=== PATIENT | male | born 1975 | race Caucasian/White ===

== ENCOUNTER 2020-03-22 12:35 | Emergency (ER) | payer OTHER, SELFPAY ==
[2020-03-22 12:50] VITALS: BP 152/97; PULSE 79; RESP 18; TEMP 36.8; O2SAT 95; BMI 35.2
[2020-03-22 16:14] VITALS: BP 139/92; PULSE 74; RESP 16; O2SAT 97
--- NOTE | 2020-03-22 16:33 | DI.CT.S_ITS ---
PROCEDURE: CT ABDOMEN PELVIS W CON INDICATIONS: suprapubic/ LLQ tenderness and guarding r/o Diverticulitis, TECHNIQUE: After the administration of intravenous contrast, 5 mm thick sections acquired from the diaphragm to the symphysis. 5 mm coronal and sagittal reformats were acquired. For radiation dose reduction, the following was used: automated exposure control, adjustment of mA and/or kV according to patient size. COMPARISON: None. FINDINGS: Image quality: Excellent. ABDOMEN: Lung bases: Lung bases are clear. Heart size is normal. Solid organs: Liver is normal in size and mildly diffusely hypodense. There is focal fat deposition adjacent to the falciform ligament and relative fat sparing in the gallbladder fossa.. Gallbladder appears normal . Biliary system is non dilated. Pancreas enhances normally. Spleen is normal in size and enhancement. No adrenal nodules. Kidneys demonstrate normal size and enhancement, without hydronephrosis. Peritoneum and bowel: There is mild pericolonic inflammatory change around a segment of proximal sigmoid colon diverticulosis. Adjacent fascial thickening is present. No free fluid or focal fluid collections. No extraluminal gas is visible. The remainder of colon and small bowel is fairly decompressed. The stomach appears normal. Nodes and vessels: No retroperitoneal or mesenteric adenopathy by size criteria. Aorta and inferior vena cava are normal in size. Miscellaneous: No ventral hernias. PELVIS: Genitourinary: The urinary bladder is decompressed. The wall is also diffusely thickened given its close proximity to pericolonic inflammation. Prostate gland size is diminutive.. Miscellaneous: No inguinal hernias or adenopathy. Bones: No suspicious bony lesions. No vertebral body compression fractures. IMPRESSION: 1. Mild sigmoid diverticulitis. 2. Diffusely thickened urinary bladder wall may represent a reactive cystitis, or may be evidence of chronic overdistention. Correlate with UA to include infectious cystitis. 3. Mild hepatic steatosis. Dictated by: Susanne Chavez M.D. on 03/22/2020 at 16:05 Approved by: Susanne Chavez M.D. on 03/22/2020 at 16:10
[2020-03-22] MEDS: SODIUM CHLORIDE 0.9% 1,000 ML 1000 ML IV (16:50)
[2020-03-22 16:51] LABS: Add Manual Diff / Slide Review NO; Basophils Absolute Auto 100 /uL (0-100); Basophils Percent Auto 1.2 % (0-2); Eosinophils Absolute Auto 200 /uL (0-450); Eosinophils Percent Auto 3.5 % (2-4); Hematocrit 46.6 % (41-53); Hemoglobin 16.1 g/dL (13.5-17.5); Lymphocytes Absolute Auto 2100 /uL (1100-4500); Lymphocytes Percent Auto 31.5 % (25-40); Mean Corpuscular HGB Conc 34.5 % (30-36); Monocytes Absolute Auto 900 /uL (0-900); Monocytes Percent Auto 13.6 % (3-14); Neutrophils Absolute Auto 3400 /uL (1500-7000); Neutrophils Percent Auto 50.2 % (50-75); Platelet Count 203 X10^3/uL (150-400); Red Blood Cell Count 5.36 X10^6/uL (4.5-5.9); Red Cell Distribution Width 13.6 % (11.6-14.8); White Blood Cell Count 6.7 X10^3/uL (4.5-11.0)
[2020-03-22] MEDS: KETOROLAC 60 MG/2 ML VIAL 30 MG IV (16:51)
[2020-03-22 17:03] LABS: Alanine Aminotransferase 61 IU/L (<50); Albumin 4.6 g/dL (3.5-5.0); Albumin Globulin Ratio 1.4 (1.0-2.8); Alkaline Phosphatase 77 U/L (38-126); Aspartate Aminotransferase 38 IU/L (17-59); BUN Creatinine Ratio 16.5 (6-22); Bilirubin Total 0.8 mg/dL (0.2-1.3); Blood Urea Nitrogen 19 mg/dL (9-20); Calcium 9.6 mg/dL (8.4-10.2); Carbon Dioxide 24 mmol/L (22-32); Chloride 104 mmol/L (98-107); Estimated Glomerular Filt Rate > 60.0 mL/min (>60); Globulin 3.2 g/dL (1.7-4.1); Glucose 100 mg/dL (70-100); HEMOLYSIS < 15 (0-50); Potassium 3.8 mmol/L (3.4-5.1); Sodium 137 mmol/L (137-145); Total Protein 7.8 g/dL (6.3-8.2)
[2020-03-22 17:03] LABS: Bacteria Urine None Seen; RBC Urine None Seen (0-5/HPF)
[2020-03-22 17:04] LABS: Appearance Urine UA CLEAR; Bilirubin Urine UA NEGATIVE (NEGATIVE); Color Urine UA YELLOW; Glucose Urine UA NEGATIVE (Negative); Ketones Urine UA NEGATIVE (NEGATIVE); Leukocyte Esterase Urine UA NEGATIVE (NEGATIVE); Nitrite Urine UA NEGATIVE (Negative); Occult Blood Urine UA NEGATIVE (Negative); Protein Urine UA NEGATIVE (Negative); pH Urine UA 6.5 (4.5-8.0)
[2020-03-22 17:19] LABS: Culture Indicated Urine Cult Not Indicated; Squamous Epithelial Cell Urine 0-1 /HPF (0-5/HPF); WBC Urine 0-1/HPF (0-5/HPF)
--- NOTE | 2020-03-22 17:48 | ED.ABDPAIN ---
HPI - Abdominal Pain General Chief Complaint: Abdominal Pain Stated Complaint: hernia Time Seen by Provider: 03/22/20 16:18 Source: patient Mode of arrival: Ambulatory Limitations: no limitations History of Present Illness HPI narrative: CC: Lower abdominal pain HPI: The patient is a 44-year-old male who presents to the emergency department with lower abdominal pain. The patient thought that he may have a hernia. He states that the pain started on Sunday. The pain seems to be constant but has gotten progressively worse. It is a dull achy discomfort that is intermittently sharp. There is no significant pain in his groin or testicles. He states that the pain is 5 to 6/10 in intensity. He denies any fall or injury. He has never before had this type of pain and discomfort. He denies that he has ever had kidney iinfection or bladder infection. He has never been told that he had a hernia. States that he has had kidney stones years ago. He denies any back pain associated with this. He has had sweats without fever or chills. He has had no headache. He denies a history of Crohn's disease ulcerative colitis or irritable bowel syndrome. He has had no history of hypertension diabetes mellitus heart disease heart murmur or asthma. He denies any chest pain cough shortness of breath. He has had no nausea or vomiting he has had some rare intermittent diarrhea without blood in his stools. He denies any urinary symptoms. He does not smoke cigarettes use marijuana but does drink alcohol. Related Data Previous Rx's Medication Instructions Recorded ciprofloxacin HCl 500 mg PO BID #20 tab 03/22/20 hydrocodone-acetaminophen [[place]] 1 tab PO Q6H PRN #12 tab 03/22/20 metronidazole [Flagyl] 500 mg PO BID #20 tab 03/22/20 prochlorperazine maleate 10 mg PO Q6H PRN #15 tab 03/22/20 [Compazine] Allergies Allergy/AdvReac Type Severity Reaction Status Date / Time No Known Drug Allergies Allergy Verified 03/22/20 12:52 Review of Systems Review of Systems Narrative: His review of systems were all negative except for those mentioned in the history of present illness. Patient History Social History Smoking Status: Never smoker Smoking Status: Never smoker alcohol intake frequency: holidays/special occasions only Exam Narrative Exam Narrative: PHYSICAL EXAM: CONSTITUTIONAL: Awake, Alert, Oriented, Coherent, Cooperative in NAD. Does not appear toxic or ill. HEAD: AT/NC EENT: PERRL, FROM of eyes, no discharge, NOSE:No epistaxis or nasal drainage MOUTH:Oral mucosa is moist and pink, posterior pharynx is without erythema or exudate. NECK: Supple, no obvious JVD, Trachea is midline without stridor, no palpable LN. SPINE: Palpation of the cervical, Thoracic, Lumbar or Sacral spine reveals no gross deformity or tenderness. No CVA tenderness. THORAX: No deformity, retractions, chest wall tenderness. LUNGS: Clear, symmetrical breath sounds without respiratory distress. HEART: Normal heart tones, regular rhythm and rate without murmur. ABDOMEN: The patient is noticeably very tender to palpation suprapubically and in the left lower quadrant with mild guarding no rebound no rigidity no palpable mass. EXTREMITIES: No edema, deformity, tenderness or cyanosis. SKIN: No rash, bruising, petechiae or purpura. NEURO: Awake, alert, oriented, conversive, cranial nerves II-XII are symmetrical , moves all 4 extremities and is ambulatory. MENTAL HEALTH: Does not appear anxious or depressed. Initial Vital Signs Initial Vital Signs: Vital Signs Temperature 98.2 F 03/22/20 12:50 Pulse Rate 79 03/22/20 12:50 Respiratory Rate 18 03/22/20 12:50 Blood Pressure 152/97 H 03/22/20 12:50 Pulse Oximetry 95 03/22/20 12:50 Course Course Course Narrative: 1749: CT of the patient's abdomen has been completed however the results remain pending at this time. 1754: Per the radiologist the patient has mild sigmoid diverticulitis. He has thickening of the bladder wall with an indeterminate cystitis. The patient will be treated with Cipro 500 mg b.i.d. and Flagyl 500 mg b.i.d. and advised to follow-up with his primary care physician and be re-evaluated. He will need to drink 2-4 L of fluid per day. 1803: CT of the patient's abdomen revealed: IMPRESSION: 1. Mild sigmoid diverticulitis. 2. Diffusely thickened urinary bladder wall may represent a reactive cystitis, or may be evidence of chronic overdistention. Correlate with UA to include infectious cystitis. 3. Mild hepatic steatosis. Dictated by: Susanne Chavez M.D. on 03/22/2020 at 16:05 Approved by: Susanne Chavez M.D. on 03/22/2020 at 16:10 IMPRESSION: 1. Mild sigmoid diverticulitis. 2. Diffusely thickened urinary bladder wall may represent a reactive cystitis, or may be evidence of chronic overdistention. Correlate with UA to include infectious cystitis. 3. Mild hepatic steatosis. Dictated by: Susanne Chavez M.D. on 03/22/2020 at 16:05 Approved by: Susanne Chavez M.D. on 03/22/2020 at 16:10 Orders Ordered: Discontinued Medications Hydrocodone Bitart/Acetaminophen ([place] 5/325) 1 tab PO NOW ONE Stop: 03/22/20 18:06 Last Admin: 03/22/20 18:27 Dose: 1 tab Documented by: FRANK Ciprofloxacin (Cipro) 500 mg PO NOW ONE Stop: 03/22/20 18:06 Last Admin: 03/22/20 18:27 Dose: 500 mg Documented by: FRANK Sodium Chloride (Normal Saline 0.9%) 1,000 mls @ 1,000 mls/hr IV BOLUS ONE Stop: 03/22/20 17:32 Last Infusion: 03/22/20 18:30 Dose: 0 mls/hr Documented by: Admin: 03/22/20 16:50 Dose: 1,000 mls/hr Documented by: JEANNE Ketorolac Tromethamine (Toradol) 30 mg IV NOW ONE Stop: 03/22/20 16:34 Last Admin: 03/22/20 16:51 Dose: 30 mg Documented by: JEANNE Metronidazole (Metronidazole) 500 mg PO NOW ONE Stop: 03/22/20 18:06 Last Admin: 03/22/20 18:26 Dose: 500 mg Documented by: FRANK Ondansetron HCl (Zofran) 4 mg IV NOW ONE Stop: 03/22/20 16:34 Last Admin: 03/22/20 18:30 Dose: Not Given Documented by: JEANNE Vital Signs Vital signs: Vital Signs - 8 hr 03/22/20 12:50 03/22/20 16:14 03/22/20 18:29 Temperature 98.2 F Pulse Rate 79 74 64 Respiratory Rate 18 16 16 Blood Pressure 152/97 H 139/92 H 149/98 H Pulse Oximetry 95 97 96 MDM - Abdominal Pain Medical Records Attestation: I reviewed the patient's medical records. Lab Data Attestation: I reviewed the patient's lab results. Result diagrams: 03/22/20 16:40 03/22/20 16:40 Labs: Lab Results 03/22/20 03/22/20 03/22/20 Range/Units 16:40 16:40 16:45 WBC 6.7 (4.5-11.0) X10^3/uL RBC 5.36 (4.5-5.9) X10^6/uL Hgb 16.1 (13.5-17.5) g/dL Hct 46.6 (41-53) % MCV 87.0 (80-100) fL MCH 30.0 (26-34) PG MCHC 34.5 (30-36) % RDW 13.6 (11.6-14.8) % Plt Count 203 (150-400) X10^3/uL Neut % (Auto) 50.2 (50-75) % Lymph % (Auto) 31.5 (25-40) % [place] % (Auto) 13.6 (3-14) % Eos % (Auto) 3.5 (2-4) % Baso % (Auto) 1.2 (0-2) % Neut # (Auto) 3400 (2325-4679) /uL Lymph # (Auto) 2100 (4432-2960) /uL [place] # (Auto) 900 (0-900) /uL Eos # (Auto) 200 (0-450) /uL Baso # (Auto) 100 (0-100) /uL Sodium 137 (137-145) mmol/L Potassium 3.8 (3.4-5.1) mmol/L Chloride 104 (98-107) mmol/L Carbon Dioxide 24 (22-32) mmol/L BUN 19 (9-20) mg/dL Creatinine 1.15 (0.66-1.25) mg/dL Estimated GFR > 60.0 (>60) mL/min BUN/Creatinine Ratio 16.5 (6-22) Glucose 100 (70-100) mg/dL Calcium 9.6 (8.4-10.2) mg/dL Total Bilirubin 0.8 (0.2-1.3) mg/dL AST 38 (17-59) IU/L ALT 61 H (<50) IU/L Alkaline Phosphatase 77 (38-126) U/L Total Protein 7.8 (6.3-8.2) g/dL Albumin 4.6 (3.5-5.0) g/dL Globulin 3.2 (1.7-4.1) g/dL Albumin/Globulin Ratio 1.4 (1.0-2.8) Urine Color Yellow Urine Appearance Clear Urine pH 6.5 (4.5-8.0) Ur Specific [place] 1.010 (1.000-1.035) Urine Protein Negative (Negative) Urine Glucose (UA) Negative (Negative) g/dL Urine Ketones Negative (NEGATIVE) Urine Occult Blood Negative (Negative) Urine Nitrate Negative (Negative) Urine Bilirubin Negative (NEGATIVE) Urine Urobilinogen 1.0 (0.2) E.U./dL Ur Leukocyte Esterase Negative (NEGATIVE) Urine RBC None seen (0-5/HPF) Urine WBC 0-1/hpf (0-5/HPF) Ur Squamous Epith Cells 0-1 /hpf (0-5/HPF) Urine Bacteria None seen (None) Ur Culture Indicated? Cult not indicated Discharge Plan Departure Patient Disposition: Home Clinical Impression: Diverticulitis, Cystitis Discharge Date/Time: 03/22/20 18:53 Instructions: DI for Diverticulitis Activity Restrictions/Additional Instructions: 1. Follow-up with your primary care physician and be re-evaluated in 48-72 hours. 2. Drink 2-4 L of fluid per day to keep yourself well hydrated. 3. Her CT scan reveals that you have an inflamed bladder with thickening of the wall consistent with arm I cystitis age indeterminate however your urine analysis was negative for any acute infection. You need to follow-up with your primary care physician because you may need to be referred to a urologist for further evaluation. The CT scan revealed that you have sigmoid diverticulitis which is causing your pain and discomfort. For the diverticulitis you will be placed on Cipro and Flagyl. Take these medications as prescribed. 4. For pain and discomfort take [place] 12/3250 tablet every 6 hours as needed for severe pain. 5. If you develop severe intolerable pain uncontrolled by the medications, persistent fever, chest pain, racing of your heart palpitations, uncontrolled nausea and vomiting, feelings of being faint or passing-out you need to return to the emergency department. 6. Take Compazine 10 mg 4 times a day as needed for nausea and vomiting. Prescriptions: New prochlorperazine maleate [Compazine] 10 mg tablet 10 mg PO Q6H PRN (Reason: nausea and vomiting) Qty: 15 RF: 0 ciprofloxacin HCl 500 mg tablet 500 mg PO BID Qty: 20 RF: 0 metronidazole [Flagyl] 500 mg tablet 500 mg PO BID Qty: 20 RF: 0 hydrocodone-acetaminophen [[place]] 5-325 mg tablet 1 tab PO Q6H PRN (Reason: pain) Qty: 12 RF: 0
[2020-03-22] MEDS: metroNIDAZOLE 250 MG TABLET 500 MG PO (18:26)
[2020-03-22] MEDS: CIPROFLOXACIN 500 MG TABLET PO (18:27)
[2020-03-22] MEDS: HYDROCODONE/ACET 5/325 TABLET 1 TAB PO (18:27)
[2020-03-22 18:29] VITALS: BP 149/98; PULSE 64; RESP 16; O2SAT 96
== END 2020-03-22 18:53 | disposition home or self-care (01) ==
PROVIDERS: Emergency Provider Emergency Medicine
DX: K57.92 Diverticulitis of intestine, part unspecified, without perforation or abscess without bleeding (principal); N30.90 Cystitis, unspecified without hematuria
CPT/HCPCS: 36415; 74177; 80053; 81001; 85025; 96361; 96374; 99284; J1885; Q9967

== ENCOUNTER 2020-05-23 12:17 | Emergency (ER) | payer OTHER, SELFPAY ==
[2020-05-23 12:28] VITALS: BP 171/118; PULSE 77; RESP 19; TEMP 37.1; O2SAT 97; BMI 33.9
[2020-05-23 12:59] LABS: Add Manual Diff / Slide Review NO; Basophils Absolute Auto 0 /uL (0-100); Basophils Percent Auto 0.4 % (0-2); Eosinophils Absolute Auto 100 /uL (0-450); Eosinophils Percent Auto 1.6 % (2-4); Hematocrit 47.5 % (41-53); Hemoglobin 16.4 g/dL (13.5-17.5); Lymphocytes Absolute Auto 1300 /uL (1100-4500); Mean Corpuscular HGB Conc 34.6 % (30-36); Mean Corpuscular Hemoglobin 30.2 PG (26-34); Mean Corpuscular Volume 87.3 fL (80-100); Monocytes Absolute Auto 900 /uL (0-900); Monocytes Percent Auto 12.8 % (3-14); Neutrophils Absolute Auto 4800 /uL (1500-7000); Neutrophils Percent Auto 67.2 % (50-75); Platelet Count 174 X10^3/uL (150-400); Red Blood Cell Count 5.44 X10^6/uL (4.5-5.9); Red Cell Distribution Width 13.2 % (11.6-14.8); White Blood Cell Count 7.2 X10^3/uL (4.5-11.0)
[2020-05-23 13:00] LABS: Alanine Aminotransferase 49 IU/L (<50); Albumin 4.5 g/dL (3.5-5.0); Albumin Globulin Ratio 1.3 (1.0-2.8); Alkaline Phosphatase 81 U/L (38-126); Aspartate Aminotransferase 27 IU/L (17-59); Bilirubin Total 0.8 mg/dL (0.2-1.3); Blood Urea Nitrogen 26 mg/dL (9-20); Calcium 9.8 mg/dL (8.4-10.2); Carbon Dioxide 28 mmol/L (22-32); Chloride 107 mmol/L (98-107); Estimated Glomerular Filt Rate 33.7 mL/min (>60); Globulin 3.6 g/dL (1.7-4.1); Glucose 98 mg/dL (70-100); HEMOLYSIS < 15 (0-50); Lipase 71 U/L (23-300); Potassium 4.6 mmol/L (3.4-5.1); Sodium 142 mmol/L (137-145); Total Protein 8.1 g/dL (6.3-8.2)
--- NOTE | 2020-05-23 13:16 | ED.ABDPAIN ---
HPI - Abdominal Pain General Chief Complaint: Abdominal Pain Stated Complaint: Pain In Lower Abd Time Seen by Provider: 05/23/20 12:45 Source: patient Mode of arrival: Ambulatory Limitations: no limitations History of Present Illness HPI narrative: Patient is a 44-year-old male who presents with right sided and right flank abdominal pain ongoing for the last 2 days. He says it has been relatively constant it sometimes radiates to his abdomen and sometimes not. He has no right upper quadrant pain he feels nauseated he has had decrease in appetite. Been drinking fluids though. Not had fever or chills. Related Data Previous Rx's Medication Instructions Recorded ciprofloxacin HCl 500 mg PO BID #20 tab 03/22/20 hydrocodone-acetaminophen [[place]] 1 tab PO Q6H PRN #12 tab 03/22/20 metronidazole [Flagyl] 500 mg PO BID #20 tab 03/22/20 prochlorperazine maleate 10 mg PO Q6H PRN #15 tab 03/22/20 [Compazine] Allergies Allergy/AdvReac Type Severity Reaction Status Date / Time No Known Drug Allergies Allergy Verified 03/22/20 12:52 Review of Systems Review of Systems Narrative: GENERAL: Denies chills, fatigue, malaise, fever, sweats, travel HEENT: Denies sinus pain, ear pain, sore throat, difficulty swallowing, neck pain RESPIRATORY: Denies dyspnea, cough, wheezing, hemoptysis, sputum. CARDIOVASCULAR: Denies chest pain, palpitations, orthopnea, edema GASTROINTESTINAL: See HPI : + flank pain Denies dysuria, frequency, incontinence, hematuria, urinary retention MUSCULOSKELETAL: Denies weakness, joint pain, or bony pain SKIN: No rash, no erythema, no pruritus NEUROLOGIC: Denies weakness, dizziness, headache, numbness, change in speech, confusion PSYCHIATRIC: No concerning psychosocial issues. 12 point review of systems is negative except for those stated above and HPI Patient History Medical History Hypertension (Acute) Social History Smoking Status: Never smoker Smoking Status: Never smoker alcohol intake frequency: a few times a month Substance Use Type: does not use Exam Initial Vital Signs Initial Vital Signs: Vital Signs Temperature 98.7 F 05/23/20 12:28 Pulse Rate 77 05/23/20 12:28 Respiratory Rate 19 05/23/20 12:28 Blood Pressure 171/118 H 05/23/20 12:28 Pulse Oximetry 97 05/23/20 12:28 GENERAL: Well-appearing, well-nourished and in no acute distress. HEENT: Head atraumatic,EOMI, pupils reactive, face symmetric, moist mucous membranes CARDIOVASCULAR: Regular rate and rhythm without murmurs, rubs or gallops. RESPIRATORY: Breath sounds equal bilaterally, no wheezes rales or rhonchi. ABDOMEN: Soft, mild right lower quadrant pain : Right CVA tenderness EXTREMITIES: Normal range of motion, no clubbing or edema. Neurovascularly intact NEUROLOGICAL: Alert and oriented x4.Normal gait and speech. SKIN: Warm, dry, no laceration, no petechiae, no rashes or lesions. Course Orders Ordered: ED Orders 05/23/20 12:32 Complete Blood Count AUTO DIFF Stat Comprehensive Metabolic Panel Stat Lipase Stat 05/23/20 13:40 CT kidney ureter bladder (KUB) Stat 05/23/20 15:00 US abdomen limited Stat Discontinued Medications Sodium Chloride (Normal Saline 0.9%) 1,000 mls @ 1,000 mls/hr IV BOLUS ONE Stop: 05/23/20 14:15 Last Infusion: 05/23/20 16:15 Dose: 1,000 mls/hr Documented by: Admin: 05/23/20 13:30 Dose: 1,000 mls/hr Documented by: KHARI Morphine Sulfate (Morphine) 2 mg IV NOW ONE Stop: 05/23/20 15:12 Last Admin: 05/23/20 15:22 Dose: 2 mg Documented by: KHARI Vital Signs Vital signs: Vital Signs - 8 hr 05/23/20 12:28 05/23/20 16:15 Temperature 98.7 F Pulse Rate 77 73 Respiratory Rate 19 18 Blood Pressure 171/118 H 160/87 H Pulse Oximetry 97 99 MDM - Abdominal Pain Lab Data Attestation: I reviewed the patient's lab results. Result diagrams: 05/23/20 12:32 05/23/20 12:32 Labs: Lab Results 05/23/20 05/23/20 Range/Units 12:32 12:32 WBC 7.2 (4.5-11.0) X10^3/uL RBC 5.44 (4.5-5.9) X10^6/uL Hgb 16.4 (13.5-17.5) g/dL Hct 47.5 (41-53) % MCV 87.3 (80-100) fL MCH 30.2 (26-34) PG MCHC 34.6 (30-36) % RDW 13.2 (11.6-14.8) % Plt Count 174 (150-400) X10^3/uL Neut % (Auto) 67.2 (50-75) % Lymph % (Auto) 18.0 L (25-40) % [place] % (Auto) 12.8 (3-14) % Eos % (Auto) 1.6 L (2-4) % Baso % (Auto) 0.4 (0-2) % Neut # (Auto) 4800 (3080-3573) /uL Lymph # (Auto) 1300 (9579-4516) /uL [place] # (Auto) 900 (0-900) /uL Eos # (Auto) 100 (0-450) /uL Baso # (Auto) 0 (0-100) /uL Sodium 142 (137-145) mmol/L Potassium 4.6 (3.4-5.1) mmol/L Chloride 107 (98-107) mmol/L Carbon Dioxide 28 (22-32) mmol/L BUN 26 H (9-20) mg/dL Creatinine 2.16 H (0.66-1.25) mg/dL Estimated GFR 33.7 L (>60) mL/min BUN/Creatinine Ratio 12.0 (6-22) Glucose 98 (70-100) mg/dL Calcium 9.8 (8.4-10.2) mg/dL Total Bilirubin 0.8 (0.2-1.3) mg/dL AST 27 (17-59) IU/L ALT 49 (<50) IU/L Alkaline Phosphatase 81 (38-126) U/L Total Protein 8.1 (6.3-8.2) g/dL Albumin 4.5 (3.5-5.0) g/dL Globulin 3.6 (1.7-4.1) g/dL Albumin/Globulin Ratio 1.3 (1.0-2.8) Lipase 71 (23-300) U/L Point of care testing: Urine Dip Bedside Urine Glucose Negative Bedside Urine Bilirubin - Negative Bedside Urine Ketone - Negative Urine Specific [place] 1.010 Bedside Urine Occult Blood - Negative Bedside Urine pH 6.0 Bedside Urine Protein - Negative Bedside Urine Urobilinogen - Negative Bedside Urine Nitrite - Negative Bedside Urine Leukocytes - Negative Esterase Imaging Data CT scan - abdomen/pelvis: Radiologist's Impression: PROCEDURE: CT KIDNEY URETER BLADDER (KUB) INDICATIONS: right flank TECHNIQUE: Noncontrast 5 mm thick sections acquired from the diaphragms to the symphysis. 5 mm thick coronal and sagittal reformats were then performed. For radiation dose reduction, the following was used: automated exposure control, adjustment of mA and/or kV according to patient size. COMPARISON: None. FINDINGS: Image quality: Excellent. Lung bases: Lung bases are clear. Heart size is normal. Urinary system: Both kidneys are normal in size. No radiopaque kidney stones. No hydronephrosis or perinephric fat stranding. Both ureters appear non-dilated throughout their expected courses. Bladder wall thickness is normal; no calcified bladder stones. Other solid organs: Liver is normal in size. Gallbladder is unremarkable. Pancreas is normal in contours. Spleen is normal in size. No adrenal nodules. Peritoneum and bowel: Unenhanced bowel loops demonstrate normal wall thickness and caliber. Appendix not visualized. Diverticulosis of the sigmoid colon. No free fluid or air. Nodes and vessels: No retroperitoneal or mesenteric adenopathy by size criteria. Aorta and inferior vena cava are normal in caliber. Vascular calcification scattered in the abdominal aorta. Abdominal wall: No ventral hernias. Pelvis: No free pelvic fluid. No inguinal hernias or adenopathy. Bones: No suspicious bony lesions. No vertebral body compression fractures. IMPRESSION: No radiopaque kidney stone or hydronephrosis. Sigmoid colon diverticulosis. Dictated by: Rafael Diaz M.D. on 05/23/2020 at 12:59 US - abdomen: Radiologist's Impression: PROCEDURE: US ABDOMEN LIMITED INDICATIONS: ruq TECHNIQUE: Real-time focused scanning was performed of the abdomen, with image documentation. COMPARISON: [facility], CT, CT KIDNEY URETER BLADDER (KUB), 05/23/2020, 13:42. FINDINGS: Liver length is 17.3 cm. Diffuse increased echogenicity and coarsened echotexture throughout the liver. The gallbladder is distended. No gallstones demonstrated. Gallbladder wall thickness of 2 mm, within normal limits. Sonographic Olea sign is negative. No demonstrated pericholecystic fluid. Common bile duct measures 0.4 cm, within normal limits. Limited visualization of the right kidney is unremarkable. Visualized portions of the pancreas are unremarkable. IMPRESSION: No evidence of cholelithiasis or acute cholecystitis. Hepatic steatosis. Dictated by: Rafael Diaz M.D. on 05/23/2020 at 15:20 MDM Narrative Medical decision making narrative: Patient is found to have increased creatinine. He started taking etodolac, last week for his back this may be contributing to his renal function. He certainly has no loss of fluid or to be dehydrated but none left he is given 1 L of IV fluid in the ED. ultrasound and CT are negative blood work otherwise is reassuring he still is having some right-sided pain without a cause identified. Discharge Plan Departure Patient Disposition: Home Clinical Impression: Acute kidney injury Abdominal pain Qualifiers: Abdominal location: generalized Qualified Code(s): R10.84 - Generalized abdominal pain Discharge Date/Time: 05/23/20 16:33 Instructions: DI for Abdominal Pain-Adult Activity Restrictions/Additional Instructions: *You have been diagnosed with abdominal pain and acute kidney injury *What to do: Your kidney function is slightly worse I recommend this be rechecked with her primary care provider. Recommend avoiding all NSAIDs because of kidney function. At this time there is no sign of diabetes. *Continue to take medications as directed Tylenol 1000 mg every 6 hours if needed for pain do not exceed more than 4000 mg in 24 hours *Follow up with your primary care provider in 2-3 days *Return to ER if you should have increasing pain inability to tolerate fluids, fever or any new, worsening or concerning symptoms Prescriptions: No Action prochlorperazine maleate [Compazine] 10 mg tablet 10 mg PO Q6H PRN (Reason: nausea and vomiting) Qty: 15 RF: 0 ciprofloxacin HCl 500 mg tablet 500 mg PO BID Qty: 20 RF: 0 metronidazole [Flagyl] 500 mg tablet 500 mg PO BID Qty: 20 RF: 0 hydrocodone-acetaminophen [[place]] 5-325 mg tablet 1 tab PO Q6H PRN (Reason: pain) Qty: 12 RF: 0 Referrals: Prem Brody MD [Primary Care Provider] -
[2020-05-23] MEDS: SODIUM CHLORIDE 0.9% 1,000 ML 1000 ML IV (13:30)
--- NOTE | 2020-05-23 13:40 | DI.CT.S_ITS ---
PROCEDURE: CT KIDNEY URETER BLADDER (KUB) INDICATIONS: right flank TECHNIQUE: Noncontrast 5 mm thick sections acquired from the diaphragms to the symphysis. 5 mm thick coronal and sagittal reformats were then performed. For radiation dose reduction, the following was used: automated exposure control, adjustment of mA and/or kV according to patient size. COMPARISON: None. FINDINGS: Image quality: Excellent. Lung bases: Lung bases are clear. Heart size is normal. Urinary system: Both kidneys are normal in size. No radiopaque kidney stones. No hydronephrosis or perinephric fat stranding. Both ureters appear non-dilated throughout their expected courses. Bladder wall thickness is normal; no calcified bladder stones. Other solid organs: Liver is normal in size. Gallbladder is unremarkable. Pancreas is normal in contours. Spleen is normal in size. No adrenal nodules. Peritoneum and bowel: Unenhanced bowel loops demonstrate normal wall thickness and caliber. Appendix not visualized. Diverticulosis of the sigmoid colon. No free fluid or air. Nodes and vessels: No retroperitoneal or mesenteric adenopathy by size criteria. Aorta and inferior vena cava are normal in caliber. Vascular calcification scattered in the abdominal aorta. Abdominal wall: No ventral hernias. Pelvis: No free pelvic fluid. No inguinal hernias or adenopathy. Bones: No suspicious bony lesions. No vertebral body compression fractures. IMPRESSION: No radiopaque kidney stone or hydronephrosis. Sigmoid colon diverticulosis. Dictated by: Rafael Diaz M.D. on 05/23/2020 at 12:59 Approved by: Rafael Diaz M.D. on 05/23/2020 at 13:17
--- NOTE | 2020-05-23 15:00 | DI.US.S_ITS ---
PROCEDURE: US ABDOMEN LIMITED INDICATIONS: ruq TECHNIQUE: Real-time focused scanning was performed of the abdomen, with image documentation. COMPARISON: [facility], CT, CT KID[facility] ([facility]), 05/23/2020, 13:42. FINDINGS: Liver length is 17.3 cm. Diffuse increased echogenicity and coarsened echotexture throughout the liver. The gallbladder is distended. No gallstones demonstrated. Gallbladder wall thickness of 2 mm, within normal limits. Sonographic Olea sign is negative. No demonstrated pericholecystic fluid. Common bile duct measures 0.4 cm, within normal limits. Limited visualization of the right kidney is unremarkable. Visualized portions of the pancreas are unremarkable. IMPRESSION: No evidence of cholelithiasis or acute cholecystitis. Hepatic steatosis. Dictated by: Rafael Diaz M.D. on 05/23/2020 at 15:20 Approved by: Rafael Diaz M.D. on 05/23/2020 at 15:22
[2020-05-23] MEDS: MORPHINE 2 MG/ML INJ IV (15:22)
[2020-05-23 16:15] VITALS: BP 160/87; PULSE 73; RESP 18; O2SAT 99
== END 2020-05-23 16:33 | disposition home or self-care (01) ==
PROVIDERS: Emergency Provider Emergency Medicine; PCP Family Medicine
DX: N17.9 Acute kidney failure, unspecified (principal); R10.84 Generalized abdominal pain; R11.0 Nausea
CPT/HCPCS: 36415; 74176; 76705; 80053; 81003; 83690; 85025; 96361; 96374; 99284; J2270

== ENCOUNTER 2020-05-25 05:16 | Emergency (ER) | payer OTHER, SELFPAY ==
[2020-05-25] VITALS (18 sets, daily range): BP systolic 134–191; BP diastolic 87–112; PULSE 55–70; RESP 11–23; TEMP 36.4; O2SAT 93–99; BMI 29.8
--- NOTE | 2020-05-25 05:37 | ED_ITS ---
HPI - Abdominal Pain <Dennis Casillas DO - Last Filed: 05/29/20 07:23> General Chief Complaint: Abdominal Pain Stated Complaint: lower abdominal pain Time Seen by Provider: 05/25/20 05:18 Source: patient and family Mode of arrival: Ambulatory Limitations: no limitations History of Present Illness HPI narrative: 44-year-old male nonsmoker with history of hypertension presents for re-evaluation of worsening lower abdominal pain since Sunday evening. He was seen and evaluated over the weekend and was found to have significant lower abdominal pain, decreased appetite, change in baseline kidney function but noncontrast CT showed nothing abnormal. He was referred to his primary care provider in the office and there was some discussion about how to proceed and follow-up was organized, however his symptoms are worsening and he was referred to us. He denies any fever chills. He denies any nausea or vomiting. He denies any worsening symptoms when eating but has no appetite so has not had much. He was seen and evaluated under similar circumstances in March and had a CT scan with IV contrast which noted diverticulitis MD complaint: abdominal pain Onset (ago): day(s) Pain Consistency: constant Severity: moderate Quality: cramping and aching Relieving factors: nothing Exacerbating factors: nothing Associated symptoms: anorexia Related Data Previous Rx's Medication Instructions Recorded ciprofloxacin HCl 500 mg PO BID #20 tab 03/22/20 hydrocodone-acetaminophen [[place]] 1 tab PO Q6H PRN #12 tab 03/22/20 metronidazole [Flagyl] 500 mg PO BID #20 tab 03/22/20 prochlorperazine maleate 10 mg PO Q6H PRN #15 tab 03/22/20 [Compazine] Allergies Allergy/AdvReac Type Severity Reaction Status Date / Time No Known Drug Allergies Allergy Verified 05/25/20 05:27 Review of Systems <Dennis Casillas DO - Last Filed: 05/29/20 07:23> Constitutional Constitutional: Denies chills, Denies fatigue, Denies fever(s), Denies frequent falls, Denies lethargy and Denies weakness Eyes Eyes: Denies change in vision, Denies eye discharge, Denies irritation and Denies loss of vision ENT Ears, Nose, Mouth, and Throat: Denies change in voice, Denies dizziness, Denies neck pain, Denies sore throat and Denies throat swelling Cardiovascular Cardiovascular: Denies chest pain, Denies irregular heart rhythm, Denies lightheadedness, Denies palpitations, Denies dyspnea, Denies dyspnea on exertion and Denies orthopnea Respiratory Respiratory: Denies cough, Denies dyspnea, Denies dyspnea on exertion and Denies wheezing Gastrointestinal Gastrointestinal: Reports abdominal pain, Denies change in bowel habits, Denies diarrhea, Denies nausea and Denies vomiting Musculoskeletal Musculoskeletal: Denies neck pain and Denies numbness Integumentary/Breasts Skin/Breast: Denies pruritus, Denies erythema, Denies rash and Denies wounds Neurologic Neurologic: Denies behavioral changes, Denies confusion, Denies dizziness, Denies frequent falls, Denies loss of vision, Denies numbness and Denies weakness Psychiatric Psychiatric: Denies anxiety, Denies behavioral changes, Denies confusion, Denies depression, Denies homicidal ideation and Denies suicidal ideation Endocrine Endocrine: Denies fatigue, Denies flushing and Denies palpitations Hematologic/Lymphatic Hematologic/Lymphatic: Denies easy bruising Allergic/Immunologic Allergic/Immunologic: Denies urticaria, Denies throat swelling and Denies wheezing Patient History <Dennis Casillas DO - Last Filed: 05/29/20 07:23> Medical History Hypertension (Acute) Social History Smoking Status: Never smoker Smoking Status: Never smoker alcohol intake frequency: a few times a month Substance Use Type: does not use Exam <Dennis Casillas DO - Last Filed: 05/29/20 07:23> Narrative Exam Narrative: GENERAL: [44] year old patient appears stated age. Well- nourished, well-developed patient, in moderate distress, obviously uncomfortable. HEAD: Atraumatic. Normocephalic. EYES: Pupils equal round and reactive. Extraocular motions intact. No scleral icterus. No injection or drainage. ENT: Nose without bleeding, purulent drainage. Throat without erythema, tonsillar hypertrophy or exudate. Airway patent. NECK: Trachea midline. Non tender CARDIOVASCULAR: Regular rate and rhythm without murmurs, gallops, or rubs. RESPIRATORY: Clear to auscultation. Breath sounds equal bilaterally. No wheezes, rales, or rhonchi. GASTROINTESTINAL: Abdomen soft, tender to palpate the left upper quadrant, minimal provocation with palpation of the lower EXTREMITIES: No edema or joint tenderness. BACK: Nontender without deformity or crepitance. No flank tenderness. NEURO: AOx3. SKIN: No rash or erythema of visible areas Initial Vital Signs Initial Vital Signs: Vital Signs Temperature 97.6 F 05/25/20 05:23 Pulse Rate 66 05/25/20 05:23 Respiratory Rate 20 05/25/20 05:23 Blood Pressure 172/98 H 05/25/20 05:23 Pulse Oximetry 97 05/25/20 05:23 <Idris Garrett DO - Last Filed: 05/25/20 12:13> Initial Vital Signs Initial Vital Signs: Vital Signs Temperature 97.6 F 05/25/20 05:23 Pulse Rate 66 05/25/20 05:23 Respiratory Rate 20 05/25/20 05:23 Blood Pressure 172/98 H 05/25/20 05:23 Pulse Oximetry 97 05/25/20 05:23 Course <Dennis Casillas DO - Last Filed: 05/29/20 07:23> Course Course Narrative: patient and informed of plan and they are in agreement. Patient signed out to Dr. Garrett for final disposition Fractional Excretion of Sodium (FENa) from [facility] on 05/25/2020 All calculations should be rechecked by clinician prior to use RESULT SUMMARY: 2.0 % FENa Intrinsic e.g. ATN, AIN, glomerulonephritides INPUTS: Serum sodium ?> 142 mEq/L Serum creatinine ?> 2.53 mg/dL Urine sodium ?> 43 mEq/L Urine creatinine ?> 37.6 mg/dL Orders Ordered: Discontinued Medications Hydromorphone HCl (Dilaudid) 0.5 mg IV NOW ONE Stop: 05/25/20 05:32 Last Admin: 05/25/20 05:38 Dose: 0.5 mg Documented by: VIVIAN Hydromorphone HCl (Dilaudid) 0.5 mg IV NOW ONE Stop: 05/25/20 07:24 Last Admin: 05/25/20 07:51 Dose: 0.5 mg Documented by: AUGUST Sodium Chloride (Normal Saline 0.9%) 1,000 mls @ 1,000 mls/hr IV BOLUS ONE Stop: 05/25/20 06:30 Last Infusion: 05/25/20 06:33 Dose: 0 mls/hr Documented by: Admin: 05/25/20 05:38 Dose: 1,000 mls/hr Documented by: VIVIAN Lisinopril (Zestril) 10 mg PO NOW ONE Stop: 05/25/20 07:30 Last Admin: 05/25/20 07:51 Dose: 10 mg Documented by: AUGUST Ondansetron HCl (Zofran) 4 mg IV NOW ONE Stop: 05/25/20 07:55 Last Admin: 05/25/20 08:00 Dose: 4 mg Documented by: AUGUST Reevaluation(s) Reevaluation #1: Patient feeling better after pain meds Consultations Consultation #1: Discussed with patient's PCP, we agree on the initial plan and he will confer with us upon completion of labs/imaging Vital Signs Vital signs: Vital Signs - 8 hr 05/25/20 05:23 05/25/20 05:43 05/25/20 06:00 Temperature 97.6 F Pulse Rate 66 70 64 Respiratory Rate 20 14 Blood Pressure 172/98 H 169/100 H Pulse Oximetry 97 95 97 05/25/20 06:30 05/25/20 07:00 05/25/20 07:30 Temperature Pulse Rate 60 62 68 Respiratory Rate 14 16 19 Blood Pressure 176/104 H 185/112 H Pulse Oximetry 99 97 98 05/25/20 07:31 05/25/20 07:51 05/25/20 08:00 Temperature Pulse Rate 67 64 Respiratory Rate 23 11 L Blood Pressure 191/112 H 161/105 H Pulse Oximetry 96 93 05/25/20 08:30 05/25/20 09:00 05/25/20 09:30 Temperature Pulse Rate 56 L 64 58 L Respiratory Rate 14 15 16 Blood Pressure 140/91 H 157/106 H 155/91 H Pulse Oximetry 97 97 96 05/25/20 10:00 05/25/20 10:30 05/25/20 11:00 Temperature Pulse Rate 56 L 55 L 55 L Respiratory Rate 16 16 14 Blood Pressure 137/87 134/90 142/96 H Pulse Oximetry 97 96 98 05/25/20 11:30 Temperature Pulse Rate 55 L Respiratory Rate 17 Blood Pressure 140/98 H Pulse Oximetry 97 <Idris Gerry, DO - Last Filed: 05/25/20 12:13> Orders Ordered: Discontinued Medications Hydromorphone HCl (Dilaudid) 0.5 mg IV NOW ONE Stop: 05/25/20 05:32 Last Admin: 05/25/20 05:38 Dose: 0.5 mg Documented by: VIVIAN Hydromorphone HCl (Dilaudid) 0.5 mg IV NOW ONE Stop: 05/25/20 07:24 Last Admin: 05/25/20 07:51 Dose: 0.5 mg Documented by: AUGUST Sodium Chloride (Normal Saline 0.9%) 1,000 mls @ 1,000 mls/hr IV BOLUS ONE Stop: 05/25/20 06:30 Last Infusion: 05/25/20 06:33 Dose: 0 mls/hr Documented by: Admin: 05/25/20 05:38 Dose: 1,000 mls/hr Documented by: VIVIAN Lisinopril (Zestril) 10 mg PO NOW ONE Stop: 05/25/20 07:30 Last Admin: 05/25/20 07:51 Dose: 10 mg Documented by: AUGUST Ondansetron HCl (Zofran) 4 mg IV NOW ONE Stop: 05/25/20 07:55 Last Admin: 05/25/20 08:00 Dose: 4 mg Documented by: AUGUST Vital Signs Vital signs: Vital Signs - 8 hr 05/25/20 05:23 05/25/20 05:43 05/25/20 06:00 Temperature 97.6 F Pulse Rate 66 70 64 Respiratory Rate 20 14 Blood Pressure 172/98 H 169/100 H Pulse Oximetry 97 95 97 05/25/20 06:30 05/25/20 07:00 05/25/20 07:30 Temperature Pulse Rate 60 62 68 Respiratory Rate 14 16 19 Blood Pressure 176/104 H 185/112 H Pulse Oximetry 99 97 98 05/25/20 07:31 05/25/20 07:51 05/25/20 08:00 Temperature Pulse Rate 67 64 Respiratory Rate 23 11 L Blood Pressure 191/112 H 161/105 H Pulse Oximetry 96 93 05/25/20 08:30 05/25/20 09:00 05/25/20 09:30 Temperature Pulse Rate 56 L 64 58 L Respiratory Rate 14 15 16 Blood Pressure 140/91 H 157/106 H 155/91 H Pulse Oximetry 97 97 96 05/25/20 10:00 05/25/20 10:30 05/25/20 11:00 Temperature Pulse Rate 56 L 55 L 55 L Respiratory Rate 16 16 14 Blood Pressure 137/87 134/90 142/96 H Pulse Oximetry 97 96 98 05/25/20 11:30 Temperature Pulse Rate 55 L Respiratory Rate 17 Blood Pressure 140/98 H Pulse Oximetry 97 MDM - Abdominal Pain <Dennis Casillas DO - Last Filed: 05/29/20 07:23> Lab Data Result diagrams: 05/25/20 05:30 05/25/20 06:40 Labs: Lab Results 05/25/20 05/25/20 05/25/20 Range/Units 05:30 05:30 06:28 WBC 7.4 (4.5-11.0) X10^3/uL RBC 5.42 (4.5-5.9) X10^6/uL Hgb 16.2 (13.5-17.5) g/dL Hct 46.8 (41-53) % MCV 86.5 (80-100) fL MCH 29.9 (26-34) PG MCHC 34.5 (30-36) % RDW 12.9 (11.6-14.8) % Plt Count 184 (150-400) X10^3/uL Neut % (Auto) 62.3 (50-75) % Lymph % (Auto) 22.6 L (25-40) % Gulf % (Auto) 11.6 (3-14) % Eos % (Auto) 2.8 (2-4) % Baso % (Auto) 0.7 (0-2) % Neut # (Auto) 4600 (2051-7220) /uL Lymph # (Auto) 1700 (3564-1433) /uL Gulf # (Auto) 900 (0-900) /uL Eos # (Auto) 200 (0-450) /uL Baso # (Auto) 100 (0-100) /uL Sodium 143 (137-145) mmol/L Potassium 4.3 (3.4-5.1) mmol/L Chloride 103 (98-107) mmol/L Carbon Dioxide 31 (22-32) mmol/L BUN 28 H (9-20) mg/dL Creatinine 2.53 H (0.66-1.25) mg/dL Estimated GFR 28.1 L (>60) mL/min BUN/Creatinine Ratio 11.1 (6-22) Glucose 106 H (70-100) mg/dL Calcium 9.7 (8.4-10.2) mg/dL Total Bilirubin 0.7 (0.2-1.3) mg/dL AST 25 (17-59) IU/L ALT 47 (<50) IU/L Alkaline Phosphatase 76 (38-126) U/L Total Protein 8.2 (6.3-8.2) g/dL Albumin 4.6 (3.5-5.0) g/dL Globulin 3.6 (1.7-4.1) g/dL Albumin/Globulin Ratio 1.3 (1.0-2.8) Lipase 67 (23-300) U/L Urine Color Urine Appearance Urine pH (4.5-8.0) Ur Specific [place] (1.000-1.035) Urine Protein (Negative) Urine Glucose (UA) (Negative) g/dL Urine Ketones (NEGATIVE) Urine Occult Blood (Negative) Urine Nitrate (Negative) Urine Bilirubin (NEGATIVE) Urine Urobilinogen (0.2) E.U./dL Ur Leukocyte Esterase (NEGATIVE) Urine RBC (0-5/HPF) Urine WBC (0-5/HPF) Urine Bacteria (None) Ur Culture Indicated? Micro UA Comment Ur Random Sodium 43 (30-90) mmol/L Urine Creatinine 37.6 mg/dL COVID-19 PCR (Negative) 05/25/20 05/25/20 05/25/20 Range/Units 06:28 06:40 09:10 WBC (4.5-11.0) X10^3/uL RBC (4.5-5.9) X10^6/uL Hgb (13.5-17.5) g/dL Hct (41-53) % MCV (80-100) fL MCH (26-34) PG MCHC (30-36) % RDW (11.6-14.8) % Plt Count (150-400) X10^3/uL Neut % (Auto) (50-75) % Lymph % (Auto) (25-40) % Gulf % (Auto) (3-14) % Eos % (Auto) (2-4) % Baso % (Auto) (0-2) % Neut # (Auto) (8472-1652) /uL Lymph # (Auto) (2138-3210) /uL Gulf # (Auto) (0-900) /uL Eos # (Auto) (0-450) /uL Baso # (Auto) (0-100) /uL Sodium 142 (137-145) mmol/L Potassium 4.4 (3.4-5.1) mmol/L Chloride 106 (98-107) mmol/L Carbon Dioxide 30 (22-32) mmol/L BUN 27 H (9-20) mg/dL Creatinine 2.45 H (0.66-1.25) mg/dL Estimated GFR 29.1 L (>60) mL/min BUN/Creatinine Ratio 11.0 (6-22) Glucose 104 H (70-100) mg/dL Calcium 8.8 (8.4-10.2) mg/dL Total Bilirubin (0.2-1.3) mg/dL AST (17-59) IU/L ALT (<50) IU/L Alkaline Phosphatase (38-126) U/L Total Protein (6.3-8.2) g/dL Albumin (3.5-5.0) g/dL Globulin (1.7-4.1) g/dL Albumin/Globulin Ratio (1.0-2.8) Lipase (23-300) U/L Urine Color Yellow Urine Appearance Clear Urine pH 6.5 (4.5-8.0) Ur Specific [place] <=1.005 (1.000-1.035) Urine Protein Negative (Negative) Urine Glucose (UA) Negative (Negative) g/dL Urine Ketones Negative (NEGATIVE) Urine Occult Blood Trace-intact (Negative) Urine Nitrate Negative (Negative) Urine Bilirubin Negative (NEGATIVE) Urine Urobilinogen 0.2 (0.2) E.U./dL Ur Leukocyte Esterase Negative (NEGATIVE) Urine RBC None seen (0-5/HPF) Urine WBC None seen (0-5/HPF) Urine Bacteria None seen (None) Ur Culture Indicated? Cult not indicated Micro UA Comment Microscopic normal Ur Random Sodium (30-90) mmol/L Urine Creatinine mg/dL COVID-19 PCR Negative (Negative) <Idris Garrett DO - Last Filed: 05/25/20 12:13> Lab Data Attestation: I reviewed the patient's lab results. Labs: Lab Results 05/25/20 05/25/20 05/25/20 Range/Units 05:30 05:30 06:28 WBC 7.4 (4.5-11.0) X10^3/uL RBC 5.42 (4.5-5.9) X10^6/uL Hgb 16.2 (13.5-17.5) g/dL Hct 46.8 (41-53) % MCV 86.5 (80-100) fL MCH 29.9 (26-34) PG MCHC 34.5 (30-36) % RDW 12.9 (11.6-14.8) % Plt Count 184 (150-400) X10^3/uL Neut % (Auto) 62.3 (50-75) % Lymph % (Auto) 22.6 L (25-40) % Gulf % (Auto) 11.6 (3-14) % Eos % (Auto) 2.8 (2-4) % Baso % (Auto) 0.7 (0-2) % Neut # (Auto) 4600 (5952-7662) /uL Lymph # (Auto) 1700 (9547-4451) /uL Gulf # (Auto) 900 (0-900) /uL Eos # (Auto) 200 (0-450) /uL Baso # (Auto) 100 (0-100) /uL Sodium 143 (137-145) mmol/L Potassium 4.3 (3.4-5.1) mmol/L Chloride 103 (98-107) mmol/L Carbon Dioxide 31 (22-32) mmol/L BUN 28 H (9-20) mg/dL Creatinine 2.53 H (0.66-1.25) mg/dL Estimated GFR 28.1 L (>60) mL/min BUN/Creatinine Ratio 11.1 (6-22) Glucose 106 H (70-100) mg/dL Calcium 9.7 (8.4-10.2) mg/dL Total Bilirubin 0.7 (0.2-1.3) mg/dL AST 25 (17-59) IU/L ALT 47 (<50) IU/L Alkaline Phosphatase 76 (38-126) U/L Total Protein 8.2 (6.3-8.2) g/dL Albumin 4.6 (3.5-5.0) g/dL Globulin 3.6 (1.7-4.1) g/dL Albumin/Globulin Ratio 1.3 (1.0-2.8) Lipase 67 (23-300) U/L Urine Color Urine Appearance Urine pH (4.5-8.0) Ur Specific [place] (1.000-1.035) Urine Protein (Negative) Urine Glucose (UA) (Negative) g/dL Urine Ketones (NEGATIVE) Urine Occult Blood (Negative) Urine Nitrate (Negative) Urine Bilirubin (NEGATIVE) Urine Urobilinogen (0.2) E.U./dL Ur Leukocyte Esterase (NEGATIVE) Urine RBC (0-5/HPF) Urine WBC (0-5/HPF) Urine Bacteria (None) Ur Culture Indicated? Micro UA Comment Ur Random Sodium 43 (30-90) mmol/L Urine Creatinine 37.6 mg/dL COVID-19 PCR (Negative) 05/25/20 05/25/20 05/25/20 Range/Units 06:28 06:40 09:10 WBC (4.5-11.0) X10^3/uL RBC (4.5-5.9) X10^6/uL Hgb (13.5-17.5) g/dL Hct (41-53) % MCV (80-100) fL MCH (26-34) PG MCHC (30-36) % RDW (11.6-14.8) % Plt Count (150-400) X10^3/uL Neut % (Auto) (50-75) % Lymph % (Auto) (25-40) % Gulf % (Auto) (3-14) % Eos % (Auto) (2-4) % Baso % (Auto) (0-2) % Neut # (Auto) (7606-3603) /uL Lymph # (Auto) (6123-4769) /uL [place] # (Auto) (0-900) /uL Eos # (Auto) (0-450) /uL Baso # (Auto) (0-100) /uL Sodium 142 (137-145) mmol/L Potassium 4.4 (3.4-5.1) mmol/L Chloride 106 (98-107) mmol/L Carbon Dioxide 30 (22-32) mmol/L BUN 27 H (9-20) mg/dL Creatinine 2.45 H (0.66-1.25) mg/dL Estimated GFR 29.1 L (>60) mL/min BUN/Creatinine Ratio 11.0 (6-22) Glucose 104 H (70-100) mg/dL Calcium 8.8 (8.4-10.2) mg/dL Total Bilirubin (0.2-1.3) mg/dL AST (17-59) IU/L ALT (<50) IU/L Alkaline Phosphatase (38-126) U/L Total Protein (6.3-8.2) g/dL Albumin (3.5-5.0) g/dL Globulin (1.7-4.1) g/dL Albumin/Globulin Ratio (1.0-2.8) Lipase (23-300) U/L Urine Color Yellow Urine Appearance Clear Urine pH 6.5 (4.5-8.0) Ur Specific [place] <=1.005 (1.000-1.035) Urine Protein Negative (Negative) Urine Glucose (UA) Negative (Negative) g/dL Urine Ketones Negative (NEGATIVE) Urine Occult Blood Trace-intact (Negative) Urine Nitrate Negative (Negative) Urine Bilirubin Negative (NEGATIVE) Urine Urobilinogen 0.2 (0.2) E.U./dL Ur Leukocyte Esterase Negative (NEGATIVE) Urine RBC None seen (0-5/HPF) Urine WBC None seen (0-5/HPF) Urine Bacteria None seen (None) Ur Culture Indicated? Cult not indicated Micro UA Comment Microscopic normal Ur Random Sodium (30-90) mmol/L Urine Creatinine mg/dL COVID-19 PCR Negative (Negative) Imaging Data CT scan - abdomen/pelvis: Radiologist's Impression: [address] [address] [address] Scan Report Signed Patient: Jonathan Felix [facility]#: [id number] : 1975Acct:[id number] Age/Sex: 44 / MDate of Service: 05/25/20 Loc: ED Accession Number: [id number] Procedure: CT abdomen pelvis wo con Ordering Provider: Denins Casillas D.O. PROCEDURE: CT ABDOMEN PELVIS WO CON INDICATIONS: Severe lower abd pain, worsening, not eating TECHNIQUE: Noncontrast 5 mm thick sections acquired from the diaphragms to the symphysis. 5 mm coronal and sagittal reformats were then performed. For radiation dose reduction, the following was used: automated exposure control, adjustment of mA and/or kV according to patient size. COMPARISON: None. FINDINGS: Image quality: Excellent. ABDOMEN: Lung bases: Lung bases are clear. Heart size is normal. Solid organs: Liver is normal in size. Gallbladder is normal. Pancreas is normal in contours. Spleen is normal in size. No adrenal nodules. Kidneys are normal in size, without hydronephrosis or nephrolithiasis. Peritoneum and bowel: Extensive sigmoid and distal colonic diverticulosis. No findings of diverticulitis. Unenhanced bowel loops demonstrate normal wall thickness and caliber. No free fluid or air. Nodes and vessels: No retroperitoneal or mesenteric adenopathy by size criteria. Aorta and inferior vena cava are normal in caliber. Miscellaneous: No ventral hernias. PELVIS: Genitourinary: Bladder wall thickness is normal. Miscellaneous: No inguinal hernias or adenopathy. Bones: No suspicious bony lesions. No vertebral body compression fractures. IMPRESSION: No acute abnormality or finding to explain symptoms. Dictated by: Alessandro Strauss M.D. on 05/25/2020 at 8:09 Approved by: Alessandro Strauss M.D. on 05/25/2020 at 8:14 MDM Narrative Medical decision making narrative: Dr garrett: Received turned over from Dr. Casillas. Reviewed patient's history and physical. Reviewed his prior ED visits and his radiologic studies. Patient's CT scan today shows no acute pathology. He again shows an increase in his BUN and creatinine. His FeNa is 2. His creatinine is unchanged after fluids. There is no signs of an obstructive uropathy. Unsure the exact etiology of his acute kidney injury and also his abdominal pain. Consider peptic ulcer disease. He has taken nonsteroidal anti- inflammatories recently but not on a regular basis. He denies any change in bow el color. I did discuss the case with with Nephrology at [facility] who agrees that the patient should be transferred for further evaluation. I did discuss the case with Dr. Felix with [facility] who accepts the patient. I also discussed the case with [place] who approves patient going to [facility]. Discussed transfer the patient. He is stable for transfer. He expressed understanding and agreement. Discharge Plan Departure Patient Disposition: [facility] Clinical Impression: Hypertension, Acute kidney injury, Abdominal pain Discharge Date/Time: 05/25/20 12:35 Prescriptions: No Action prochlorperazine maleate [Compazine] 10 mg tablet 10 mg PO Q6H PRN (Reason: nausea and vomiting) Qty: 15 RF: 0 ciprofloxacin HCl 500 mg tablet 500 mg PO BID Qty: 20 RF: 0 metronidazole [Flagyl] 500 mg tablet 500 mg PO BID Qty: 20 RF: 0 hydrocodone-acetaminophen [[place]] 5-325 mg tablet 1 tab PO Q6H PRN (Reason: pain) Qty: 12 RF: 0 Referrals: Prem Brody MD [Primary Care Provider] -
[2020-05-25] MEDS: SODIUM CHLORIDE 0.9% 1,000 ML 1000 ML IV (05:38)
[2020-05-25] MEDS: HYDROMORPHONE 0.5 MG INJ IV ×2 (05:38→07:51)
[2020-05-25 05:39] LABS: Add Manual Diff / Slide Review NO; Basophils Absolute Auto 100 /uL (0-100); Basophils Percent Auto 0.7 % (0-2); Eosinophils Absolute Auto 200 /uL (0-450); Eosinophils Percent Auto 2.8 % (2-4); Hematocrit 46.8 % (41-53); Hemoglobin 16.2 g/dL (13.5-17.5); Lymphocytes Absolute Auto 1700 /uL (1100-4500); Lymphocytes Percent Auto 22.6 % (25-40); Mean Corpuscular HGB Conc 34.5 % (30-36); Mean Corpuscular Hemoglobin 29.9 PG (26-34); Mean Corpuscular Volume 86.5 fL (80-100); Monocytes Absolute Auto 900 /uL (0-900); Monocytes Percent Auto 11.6 % (3-14); Neutrophils Absolute Auto 4600 /uL (1500-7000); Neutrophils Percent Auto 62.3 % (50-75); Platelet Count 184 X10^3/uL (150-400); Red Blood Cell Count 5.42 X10^6/uL (4.5-5.9); Red Cell Distribution Width 12.9 % (11.6-14.8); White Blood Cell Count 7.4 X10^3/uL (4.5-11.0)
[2020-05-25 05:46] LABS: Alanine Aminotransferase 47 IU/L (<50); Albumin 4.6 g/dL (3.5-5.0); Albumin Globulin Ratio 1.3 (1.0-2.8); Alkaline Phosphatase 76 U/L (38-126); Aspartate Aminotransferase 25 IU/L (17-59); BUN Creatinine Ratio 11.1 (6-22); Bilirubin Total 0.7 mg/dL (0.2-1.3); Blood Urea Nitrogen 28 mg/dL (9-20); Calcium 9.7 mg/dL (8.4-10.2); Carbon Dioxide 31 mmol/L (22-32); Chloride 103 mmol/L (98-107); Estimated Glomerular Filt Rate 28.1 mL/min (>60); Globulin 3.6 g/dL (1.7-4.1); Glucose 106 mg/dL (70-100); HEMOLYSIS < 15 (0-50); Lipase 67 U/L (23-300); Potassium 4.3 mmol/L (3.4-5.1); Sodium 143 mmol/L (137-145); Total Protein 8.2 g/dL (6.3-8.2)
--- NOTE | 2020-05-25 05:56 | PC.NURSE ---
Oral contrast started
[2020-05-25 06:35] LABS: Bacteria Urine None Seen; RBC Urine None Seen (0-5/HPF); WBC Urine None Seen (0-5/HPF)
[2020-05-25 06:36] LABS: Appearance Urine UA CLEAR; Bilirubin Urine UA NEGATIVE (NEGATIVE); Color Urine UA YELLOW; Glucose Urine UA NEGATIVE (Negative); Ketones Urine UA NEGATIVE (NEGATIVE); Leukocyte Esterase Urine UA NEGATIVE (NEGATIVE); Nitrite Urine UA NEGATIVE (Negative); Occult Blood Urine UA TRACE-INTACT (Negative); Protein Urine UA NEGATIVE (Negative); Specific Gravity Urine UA <=1.005 (1.000-1.035); Urobilinogen Urine UA 0.2 E.U./dL (0.2); pH Urine UA 6.5 (4.5-8.0)
[2020-05-25 06:41] LABS: Culture Indicated Urine Cult Not Indicated; Urine Comments Microscopic Normal
[2020-05-25 06:53] LABS: Creatinine Urine Random 37.6 mg/dL; Sodium Urine Random 43 mmol/L (30-90)
[2020-05-25 06:57] LABS: Blood Urea Nitrogen 27 mg/dL (9-20); Calcium 8.8 mg/dL (8.4-10.2); Carbon Dioxide 30 mmol/L (22-32); Chloride 106 mmol/L (98-107); Estimated Glomerular Filt Rate 29.1 mL/min (>60); Glucose 104 mg/dL (70-100); HEMOLYSIS < 15 (0-50); Potassium 4.4 mmol/L (3.4-5.1); Sodium 142 mmol/L (137-145)
[2020-05-25] MEDS: lisinopriL 10 MG TABLET PO (07:51)
[2020-05-25] MEDS: ONDANSETRON 4 MG/2 ML INJ IV (08:00)
--- NOTE | 2020-05-25 08:02 | DI.CT.S_ITS ---
PROCEDURE: CT ABDOMEN PELVIS WO CON INDICATIONS: Severe lower abd pain, worsening, not eating TECHNIQUE: Noncontrast 5 mm thick sections acquired from the diaphragms to the symphysis. 5 mm coronal and sagittal reformats were then performed. For radiation dose reduction, the following was used: automated exposure control, adjustment of mA and/or kV according to patient size. COMPARISON: None. FINDINGS: Image quality: Excellent. ABDOMEN: Lung bases: Lung bases are clear. Heart size is normal. Solid organs: Liver is normal in size. Gallbladder is normal. Pancreas is normal in contours. Spleen is normal in size. No adrenal nodules. Kidneys are normal in size, without hydronephrosis or nephrolithiasis. Peritoneum and bowel: Extensive sigmoid and distal colonic diverticulosis. No findings of diverticulitis. Unenhanced bowel loops demonstrate normal wall thickness and caliber. No free fluid or air. Nodes and vessels: No retroperitoneal or mesenteric adenopathy by size criteria. Aorta and inferior vena cava are normal in caliber. Miscellaneous: No ventral hernias. PELVIS: Genitourinary: Bladder wall thickness is normal. Miscellaneous: No inguinal hernias or adenopathy. Bones: No suspicious bony lesions. No vertebral body compression fractures. IMPRESSION: No acute abnormality or finding to explain symptoms. Dictated by: Alessandro Strauss M.D. on 05/25/2020 at 8:09 Approved by: Alessandro Strauss M.D. on 05/25/2020 at 8:14
[2020-05-25 09:27] LABS: COVID19 -Nasal RAPID Negative (Negative)
== END 2020-05-25 12:35 | disposition short-term general hospital (02) ==
PROVIDERS: Emergency Medicine; Emergency Provider Emergency Medicine; PCP Family Medicine
DX: N17.9 Acute kidney failure, unspecified (principal); R10.30 Lower abdominal pain, unspecified; I10 Essential (primary) hypertension
CPT/HCPCS: 36415; 74176; 80048; 80053; 81001; 82570; 83690; 84300; 85025; 87635; 96361; 96374; 96375; 96376; 99284; J1170; J2405

== ENCOUNTER → 2021-01-12 15:45 | Outpatient (CLI) | payer OTHER, SELFPAY ==
[2021-01-12] MEDS: COVID-19 VACC, Ad26(JANSSEN)/PF 0.5 ML IM (15:52)
== END ==
PROVIDERS: PCP Family Medicine; Visit Provider Internal Medicine
DX: Z23 Encounter for immunization (principal)
CPT/HCPCS: 0031A; 91303

== ENCOUNTER → 2021-07-09 08:43 | Outpatient (CLI) | payer OTHER, SELFPAY ==
[2021-07-09 09:41] LABS: Add Manual Diff / Slide Review NO; Basophils Absolute Auto 100 /uL (0-100); Basophils Percent Auto 1.2 % (0-2); Eosinophils Absolute Auto 200 /uL (0-450); Eosinophils Percent Auto 3.4 % (2-4); Hematocrit 47.6 % (41-53); Hemoglobin 16.3 g/dL (13.5-17.5); Lymphocytes Absolute Auto 1800 /uL (1100-4500); Lymphocytes Percent Auto 35.9 % (25-40); Mean Corpuscular HGB Conc 34.3 % (30-36); Mean Corpuscular Hemoglobin 29.4 PG (26-34); Mean Corpuscular Volume 85.8 fL (80-100); Monocytes Absolute Auto 600 /uL (0-900); Monocytes Percent Auto 11.5 % (3-14); Neutrophils Absolute Auto 2400 /uL (1500-7000); Platelet Count 185 X10^3/uL (150-400); Red Blood Cell Count 5.55 X10^6/uL (4.5-5.9); Red Cell Distribution Width 12.8 % (11.6-14.8)
[2021-07-09 10:51] LABS: Alanine Aminotransferase 65 IU/L (<50); Albumin 4.7 g/dL (3.5-5.0); Albumin Globulin Ratio 1.6 (1.0-2.8); Alkaline Phosphatase 74 U/L (38-126); Aspartate Aminotransferase 45 IU/L (17-59); Bilirubin Total 0.7 mg/dL (0.2-1.3); Blood Urea Nitrogen 18 mg/dL (9-20); Calcium 9.6 mg/dL (8.4-10.2); Carbon Dioxide 28 mmol/L (22-32); Chloride 104 mmol/L (98-107); Cholesterol 287 mg/dL (140-199); Estimated Glomerular Filt Rate > 60.0 mL/min (>60); Glucose 97 mg/dL (70-100); HDL Cholesterol 32 mg/dL (40-60); HEMOLYSIS < 15 (0-50); LDL Cholesterol Calculated 192 mg/dL (<100); Potassium 4.5 mmol/L (3.4-5.1); Sodium 140 mmol/L (137-145); Total Protein 7.7 g/dL (6.3-8.2); Triglycerides 315 mg/dL (35-150); VLDL Cholesterol Calculated 63 mg/dL (2-30)
[2021-07-09 11:13] LABS: Thyroid Stimulating Hormone 2.78 uIU/mL (0.47-4.68)
[2021-07-09 11:15] LABS: Testosterone 332 ng/dL (132-813)
== END ==
PROVIDERS: PCP Family Medicine; Referring Provider Family Medicine; Visit Provider Family Medicine
DX: I10 Essential (primary) hypertension (principal); E78.5 Hyperlipidemia, unspecified; R53.83 Other fatigue
CPT/HCPCS: 36415; 80053; 80061; 84403; 84443; 85025

== ENCOUNTER 2021-09-09 19:37 | Emergency (ER) | payer OTHER, SELFPAY ==
[2021-09-09] VITALS (15 sets, daily range): BP systolic 134–202; BP diastolic 67–96; PULSE 83–99; RESP 15–29; TEMP 37.7–38.4; O2SAT 94–99; BMI 33.2
--- NOTE | 2021-09-09 19:38 | DI.RAD.S_ITS ---
PROCEDURE: XR CHEST 1V INDICATIONS: chest pain TECHNIQUE: One view of the chest was acquired. COMPARISON: None. FINDINGS: Surgical changes and devices: None. Lungs and pleura: Lungs are clear. No pleural effusions or pneumothorax. Mediastinum: Mediastinal contours appear normal. Heart size is normal. Bones and chest wall: No suspicious bony lesions. Overlying soft tissues appear unremarkable. IMPRESSION: No acute cardiopulmonary pathology. Dictated by: Nick Mendez M.D. on 09/09/2021 at 20:33 Approved by: Nick Mendez M.D. on 09/09/2021 at 20:34
--- NOTE | 2021-09-09 19:47 | ED.CHESTPAIN ---
HPI - Chest Pain General Chief Complaint: Chest Pain Stated Complaint: Chest Pain Time Seen by Provider: 09/09/21 19:38 History of Present Illness HPI narrative: 46-year-old male nonsmoker with history of hypertension and medication induced renal failure presents with significant other and a chief complaint of a few days of pleuritic anterior chest pain, dry hacking cough, body aches and subjective fever. He denies runny nose or nasal congestion and has a bit of a sore throat. He has had no nausea, vomiting or diarrhea. He admits to being generally fatigued and feeling unwell. He denies any exertional component but does state that his chest pain seems to be worse with deep breath or cough. He denies any history of blood clot, lower extremity swelling, recent trauma but did recently fly to [place] Related Data Previous Rx's Medication Instructions Recorded ciprofloxacin HCl 500 mg tablet 500 mg PO BID #20 tab 03/22/20 hydrocodone 5 mg-acetaminophen 325 1 tab PO Q6H PRN #12 tab 03/22/20 mg tablet ([place]) metronidazole 500 mg tablet 500 mg PO BID #20 tab 03/22/20 (Flagyl) prochlorperazine maleate 10 mg 10 mg PO Q6H PRN #15 tab 03/22/20 tablet (Compazine) Allergies Allergy/AdvReac Type Severity Reaction Status Date / Time No Known Drug Allergies Allergy Verified 05/25/20 05:27 Review of Systems Review of Systems Narrative: GENERAL: See HPI HEENT: See HPI RESPIRATORY: See HPI CARDIOVASCULAR: See HPI GASTROINTESTINAL: Denies nausea, vomiting, abdominal pain, diarrhea, constipation, melena. : Denies dysuria, frequency, incontinence, hematuria, urinary retention. MUSCULOSKELETAL: denies weakness, joint pain, or bony pain SKIN: Denies rash, skin lesions, or other NEUROLOGIC: Denies weakness, headache, numbness, change in speech, confusion, seizures, incoordination. PSYCHIATRIC: No concerning psychosocial issues. 12 point review of systems is negative except for those stated above Patient History Medical History (Updated 09/09/21 @ 23:36 by Dennis Casillas DO) Hypertension Social History Smoking Status: Never smoker Smoking Status: Never smoker alcohol intake frequency: a few times a month Substance Use Type: does not use Exam Narrative Exam Narrative: GENERAL: [46 year old patient appears stated age. Well-developed patient, in mild distress. HEAD: Atraumatic. Normocephalic. EYES: Pupils equal round and reactive. Extraocular motions intact. No scleral icterus. No injection or drainage. ENT: Nose without bleeding, purulent drainage. Throat without erythema, tonsillar hypertrophy or exudate. Airway patent. NECK: Trachea midline. Non tender CARDIOVASCULAR: Regular rate and rhythm without murmurs, gallops, or rubs. RESPIRATORY: Clear to auscultation. Breath sounds equal bilaterally. No wheezes, rales, or rhonchi. GASTROINTESTINAL: Abdomen soft, non-tender, nondistended. EXTREMITIES: No edema or joint tenderness. BACK: Nontender without deformity or crepitance. No flank tenderness. NEURO: AOx3. SKIN: No rash or erythema of visible areas Initial Vital Signs Initial Vital Signs: Vital Signs Temperature 101.1 F H 09/09/21 19:45 Pulse Rate 99 H 09/09/21 19:45 Respiratory Rate 17 09/09/21 19:45 Blood Pressure 202/96 H 09/09/21 19:45 Pulse Oximetry 99 09/09/21 19:45 Course Orders Ordered: ED Orders 09/09/21 19:38 XR chest 1V Stat EKG-12 Lead Stat 09/09/21 19:50 COVID19 -Nasal swab/Pre-Proc Stat 09/09/21 19:58 CRP [C-Reactive Protein Quant] Stat Complete Blood Count AUTO DIFF Stat Comprehensive Metabolic Panel Stat D Dimer Stat ESR [Erythrocyte Sedimentation Rate] Stat Lipase Stat Troponin & CK Cardiac Panel Stat 09/09/21 21:51 CT angio chest PE protocol Stat 09/09/21 22:39 Trop I [Troponin I] Stat Sodium Chloride (Normal Saline 0.9%) 1,000 mls @ 150 mls/hr IV CONT APRIL Last Admin: 09/09/21 20:05 Dose: 150 mls/hr Documented by: JUSTIN Discontinued Medications Aspirin (Aspirin 81 Mg Chew Tab) 324 mg PO NOW ONE Stop: 09/09/21 19:39 Last Admin: 09/09/21 20:05 Dose: 324 mg Documented by: JUSTIN Ketorolac Tromethamine (Ketorolac 30 Mg/Ml Vial) 15 mg IV NOW ONE Stop: 09/09/21 21:18 Last Admin: 09/09/21 21:45 Dose: 15 mg Documented by: JUSITN Vital Signs Vital signs: Vital Signs - 8 hr 09/09/21 19:45 09/09/21 20:00 09/09/21 20:30 Temperature 101.1 F H Pulse Rate 99 H 93 H 99 H Respiratory Rate 17 29 H Blood Pressure 202/96 H 185/82 H 175/86 H Pulse Oximetry 98 98 95 09/09/21 21:00 09/09/21 21:01 09/09/21 21:30 Temperature Pulse Rate 95 H 97 H 97 H Respiratory Rate 15 Blood Pressure 153/73 H 158/93 H Pulse Oximetry 95 95 94 09/09/21 21:50 09/09/21 22:00 09/09/21 22:30 Temperature 100.6 F H Pulse Rate 90 85 Respiratory Rate Blood Pressure 167/83 H Pulse Oximetry 95 95 09/09/21 22:39 09/09/21 22:54 Temperature 100.6 F H Pulse Rate 84 Respiratory Rate Blood Pressure 134/70 Pulse Oximetry 96 MDM - Chest Pain Lab Data Result diagrams: 09/09/21 19:58 09/09/21 19:58 Labs: Lab Results 09/09/21 09/09/21 09/09/21 Range/Units 19:50 19:58 19:58 WBC 5.8 (4.5-11.0) X10^3/uL RBC 5.69 (4.5-5.9) X10^6/uL Hgb 17.1 (13.5-17.5) g/dL Hct 48.7 (41-53) % MCV 85.6 (80-100) fL MCH 30.0 (26-34) PG MCHC 35.0 (30-36) % RDW 13.2 (11.6-14.8) % Plt Count 215 (150-400) X10^3/uL Neut % (Auto) 79.3 H (50-75) % Lymph % (Auto) 11.2 L (25-40) % [place] % (Auto) 7.4 (3-14) % Eos % (Auto) 1.3 L (2-4) % Baso % (Auto) 0.8 (0-2) % Neut # (Auto) 4600 (5285-4249) /uL Lymph # (Auto) 600 L (2572-8012) /uL [place] # (Auto) 400 (0-900) /uL Eos # (Auto) 100 (0-450) /uL Baso # (Auto) 0 (0-100) /uL ESR (0-15) MM/HR D-Dimer (<230) ng/mL Sodium 138 (137-145) mmol/L Potassium 4.2 (3.4-5.1) mmol/L Chloride 103 (98-107) mmol/L Carbon Dioxide 28 (22-32) mmol/L BUN 20 (9-20) mg/dL Creatinine 0.88 (0.66-1.25) mg/dL Estimated GFR > 60.0 (>60) mL/min BUN/Creatinine Ratio 22.7 H (6-22) Glucose 99 (70-100) mg/dL Calcium 9.9 (8.4-10.2) mg/dL Total Bilirubin 0.5 (0.2-1.3) mg/dL AST 41 (17-59) IU/L ALT 62 H (<50) IU/L Alkaline Phosphatase 72 (38-126) U/L Total Creatine Kinase 228 H (55-170) U/L CK-MB (CK-2) 1.79 (<2.37) ng/mL CK-MB (CK-2) Rel Index 0.8 L (1.5-5.0) % Troponin I < 0.012 (0.01-0.034) ng/mL C-Reactive Protein (<1.0) mg/dL Total Protein 8.4 H (6.3-8.2) g/dL Albumin 4.7 (3.5-5.0) g/dL Globulin 3.7 (1.7-4.1) g/dL Albumin/Globulin Ratio 1.3 (1.0-2.8) Lipase 195 (23-300) U/L SARS-CoV-2 (PCR) Negative (Negative) 09/09/21 09/09/21 09/09/21 Range/Units 19:58 19:58 19:58 WBC (4.5-11.0) X10^3/uL RBC (4.5-5.9) X10^6/uL Hgb (13.5-17.5) g/dL Hct (41-53) % MCV (80-100) fL MCH (26-34) PG MCHC (30-36) % RDW (11.6-14.8) % Plt Count (150-400) X10^3/uL Neut % (Auto) (50-75) % Lymph % (Auto) (25-40) % [place] % (Auto) (3-14) % Eos % (Auto) (2-4) % Baso % (Auto) (0-2) % Neut # (Auto) (9749-8859) /uL Lymph # (Auto) (9074-7141) /uL [place] # (Auto) (0-900) /uL Eos # (Auto) (0-450) /uL Baso # (Auto) (0-100) /uL ESR 1 (0-15) MM/HR D-Dimer 413 H (<230) ng/mL Sodium (137-145) mmol/L Potassium (3.4-5.1) mmol/L Chloride (98-107) mmol/L Carbon Dioxide (22-32) mmol/L BUN (9-20) mg/dL Creatinine (0.66-1.25) mg/dL Estimated GFR (>60) mL/min BUN/Creatinine Ratio (6-22) Glucose (70-100) mg/dL Calcium (8.4-10.2) mg/dL Total Bilirubin (0.2-1.3) mg/dL AST (17-59) IU/L ALT (<50) IU/L Alkaline Phosphatase (38-126) U/L Total Creatine Kinase (55-170) U/L CK-MB (CK-2) (<2.37) ng/mL CK-MB (CK-2) Rel Index (1.5-5.0) % Troponin I (0.01-0.034) ng/mL C-Reactive Protein 0.8 (<1.0) mg/dL Total Protein (6.3-8.2) g/dL Albumin (3.5-5.0) g/dL Globulin (1.7-4.1) g/dL Albumin/Globulin Ratio (1.0-2.8) Lipase (23-300) U/L SARS-CoV-2 (PCR) (Negative) 09/09/21 Range/Units 22:39 WBC (4.5-11.0) X10^3/uL RBC (4.5-5.9) X10^6/uL Hgb (13.5-17.5) g/dL Hct (41-53) % MCV (80-100) fL MCH (26-34) PG MCHC (30-36) % RDW (11.6-14.8) % Plt Count (150-400) X10^3/uL Neut % (Auto) (50-75) % Lymph % (Auto) (25-40) % [place] % (Auto) (3-14) % Eos % (Auto) (2-4) % Baso % (Auto) (0-2) % Neut # (Auto) (2045-2935) /uL Lymph # (Auto) (0478-2875) /uL [place] # (Auto) (0-900) /uL Eos # (Auto) (0-450) /uL Baso # (Auto) (0-100) /uL ESR (0-15) MM/HR D-Dimer (<230) ng/mL Sodium (137-145) mmol/L Potassium (3.4-5.1) mmol/L Chloride (98-107) mmol/L Carbon Dioxide (22-32) mmol/L BUN (9-20) mg/dL Creatinine (0.66-1.25) mg/dL Estimated GFR (>60) mL/min BUN/Creatinine Ratio (6-22) Glucose (70-100) mg/dL Calcium (8.4-10.2) mg/dL Total Bilirubin (0.2-1.3) mg/dL AST (17-59) IU/L ALT (<50) IU/L Alkaline Phosphatase (38-126) U/L Total Creatine Kinase (55-170) U/L CK-MB (CK-2) (<2.37) ng/mL CK-MB (CK-2) Rel Index (1.5-5.0) % Troponin I < 0.012 (0.01-0.034) ng/mL C-Reactive Protein (<1.0) mg/dL Total Protein (6.3-8.2) g/dL Albumin (3.5-5.0) g/dL Globulin (1.7-4.1) g/dL Albumin/Globulin Ratio (1.0-2.8) Lipase (23-300) U/L SARS-CoV-2 (PCR) (Negative) Imaging Data Chest x-ray: Radiologist's Impression: [address] [address] XRay Report Signed Patient: Jonathan Felix MR#: [id number] : 1975 Acct:[id number] Age/Sex: 46 / M Date of Service: 09/09/21 Loc: ED Accession Number: [id number] ?? Procedure: XR chest 1V Ordering Provider: Dennis Casillas D.O. PROCEDURE:? XR CHEST 1V ? INDICATIONS:? chest pain ? TECHNIQUE:? One view of the chest was acquired.? ? COMPARISON:? None. ? FINDINGS:? ? Surgical changes and devices:? None.? ? Lungs and pleura:? Lungs are clear.? No pleural effusions or pneumothorax.? ? Mediastinum:? Mediastinal contours appear normal.? Heart size is normal.? ? Bones and chest wall:? No suspicious bony lesions.? Overlying soft tissues appear unremarkable.? ? IMPRESSION:? No acute cardiopulmonary pathology. ? ? Dictated by: Nick Mendez M.D. on 09/09/2021 at 20:33 ? ? Approved by: Nick Mendez M.D. on 09/09/2021 at 20:34 ? CT scan - chest: Radiologist's Impression: [address] [address] [address] Scan Report Signed Patient: Jonathan Felix MR#: [id number] : 1975 Acct:[id number] Age/Sex: 46 / M Date of Service: 09/09/21 Loc: ED Accession Number: [id number] ?? Procedure: CT angio chest PE protocol Ordering Provider: Dennis Casillas D.O. PROCEDURE:? CT ANGIO CHEST PE PROTOCOL ? INDICATIONS:? CP, SOB, hypoxia, pleuritic tachycardia, recent travel ? TECHNIQUE:? After the administration of intravenous contrast, 2 mm thick sections acquired from the pulmonary apices to the posterior costophrenic angles.? 3-dimensional maximum intensity projection (MIP) coronal and sagittal reformats were then acquired through the thorax.? For radiation dose reduction, the following was used:? automated exposure control, adjustment of mA and/or kV according to patient size.? ? COMPARISON:? None. ? FINDINGS:? Image quality:? Excellent.? ? Pulmonary arteries:? Pulmonary arteries are normal in size, and demonstrate no intraluminal filling defects to suggest central pulmonary embolism.? ? Lungs and pleura:? A few scattered ground-glass opacities are seen in posterior aspect of bilateral lung guillory which may represent mild pulmonary edema versus pneumonitis.? No pleural effusions or pneumothorax.? Central and peripheral airways are patent.? ? Mediastinum:? Heart size is normal, without pericardial effusion.? No mediastinal or hilar adenopathy.? Thoracic aorta is normal in caliber and enhancement.? Esophagus is normal in caliber, without hiatal hernia.? ? Bones and chest wall:? No suspicious bony lesions.? Ribs and thoracic spine appear intact throughout.? Thyroid gland is within normal limits.? No axillary or supraclavicular adenopathy.? ? Abdomen:? Visualized upper abdominal solid organs appear normal in the early arterial phase of enhancement.? ? IMPRESSION:? 1. No evidence of pulmonary emboli.? No thoracic aortic aneurysm or dissection. 2. No mediastinal or hilar lymphadenopathy. 3. Ill-defined ground-glass opacities in dependent portion of bilateral lung guillory which may represent mild pulmonary edema versus pneumonitis.? Early infiltrates secondary to atypical viral pneumonia such as COVID-19 infection cannot be entirely excluded.? Clinical correlation is recommended.? No pleural effusion or pneumothorax.? ? ? Dictated by: Nick Mendez M.D. on 09/09/2021 at 22:24 ? ? Approved by: Nick Mendez M.D. on 09/09/2021 at 22:26 ? ECG Data Interpretation: EKG is normal sinus rhythm rate [ 94] and free of any signs of ischemia or ectopy. No ST segmental elevation or depression. No T wave inversions MDM Narrative Medical decision making narrative: Patient's history, physical exam including vitals taken the consideration and multiple diagnoses including cardiac ischemia, pulmonary embolism, COVID pneumonia and others considered. Cardiac ischemia thought very unlikely given his history and physical exam, lack of exertional change, radiation, nausea or vomiting as well as multiple negative troponins and a nonischemic EKG. Patient had high pretest probability and a slightly elevated D-dimer therefore CT angiogram obtained for pulmonary embolism. Patient's constellation of symptoms raise my suspicion for COVID-19 and though his test was negative I explained to him that would not be surprised if it turns positive a few days down the line. Extensive return precautions discussed and questions have been answered to the apparent satisfaction of both patient and his . Discharge Plan Departure Patient Disposition: Home Clinical Impression: Atypical chest pain Instructions: DI for Atypical Chest Pain Activity Restrictions/Additional Instructions: *You have been diagnosed with [atypical chest pain. Your history, physical exam, EKGs, imaging and lab work are very reassuring. There is no evidence of heart attack, blood clot, bacterial pneumonia. As we discussed, though your COVID test was negative today these tests are not as sensitive as we would like early in the course of illness. Please stay home, wear a mask and behave as if you do have COVID until your 5th day of illness at which point it would be reasonable to get another test. *What to do: *Please continue to take your regular medications as directed. [ ] New medication prescriptions sent to your pharmacy: [ ] [ ] New medication written as a paper prescription [x ] No new medications given *Please follow up with your primary care provider in 2-3 days, call for an appointment. Let them know you were seen in the Emergency Department and that we ask that you be seen in follow up. We will electronically transmit a record of today's note if your PCP is in our system *If you do not have a primary care provider please contact the [facility] Resource line at [phone]. They will ask some questions about your medical history and help get you set up with a doctor in the community. *Return to Emergency Department if you should have any new, worsening or concerning symptoms, such as [fever greater than 101 F, shaking chills, worsening pain, persistent vomiting or other bothersome symptoms] Prescriptions: No Action prochlorperazine maleate [Compazine] 10 mg tablet 10 mg PO Q6H PRN (Reason: nausea and vomiting) Qty: 15 0RF ciprofloxacin HCl 500 mg tablet 500 mg PO BID Qty: 20 0RF metronidazole [Flagyl] 500 mg tablet 500 mg PO BID Qty: 20 0RF hydrocodone-acetaminophen [[place]] 5-325 mg tablet 1 tab PO Q6H PRN (Reason: pain) Qty: 12 0RF Referrals: Prem Brody MD [Primary Care Provider] -
[2021-09-09 20:04] LABS: Add Manual Diff / Slide Review NO; Basophils Absolute Auto 0 /uL (0-100); Basophils Percent Auto 0.8 % (0-2); Eosinophils Absolute Auto 100 /uL (0-450); Eosinophils Percent Auto 1.3 % (2-4); Hematocrit 48.7 % (41-53); Hemoglobin 17.1 g/dL (13.5-17.5); Lymphocytes Absolute Auto 600 /uL (1100-4500); Lymphocytes Percent Auto 11.2 % (25-40); Mean Corpuscular Volume 85.6 fL (80-100); Monocytes Absolute Auto 400 /uL (0-900); Monocytes Percent Auto 7.4 % (3-14); Neutrophils Absolute Auto 4600 /uL (1500-7000); Neutrophils Percent Auto 79.3 % (50-75); Platelet Count 215 X10^3/uL (150-400); Red Blood Cell Count 5.69 X10^6/uL (4.5-5.9); Red Cell Distribution Width 13.2 % (11.6-14.8); White Blood Cell Count 5.8 X10^3/uL (4.5-11.0)
[2021-09-09] MEDS: SODIUM CHLORIDE 0.9% 1,000 ML 150 ML IV (20:05)
[2021-09-09] MEDS: ASPIRIN 81 MG CHEW TAB 324 MG PO (20:05)
[2021-09-09 20:16] LABS: Alanine Aminotransferase 62 IU/L (<50); Albumin 4.7 g/dL (3.5-5.0); Albumin Globulin Ratio 1.3 (1.0-2.8); Alkaline Phosphatase 72 U/L (38-126); Aspartate Aminotransferase 41 IU/L (17-59); BUN Creatinine Ratio 22.7 (6-22); Bilirubin Total 0.5 mg/dL (0.2-1.3); Blood Urea Nitrogen 20 mg/dL (9-20); Calcium 9.9 mg/dL (8.4-10.2); Carbon Dioxide 28 mmol/L (22-32); Chloride 103 mmol/L (98-107); Creatine Kinase 228 U/L (55-170); Estimated Glomerular Filt Rate > 60.0 mL/min (>60); Globulin 3.7 g/dL (1.7-4.1); Glucose 99 mg/dL (70-100); HEMOLYSIS 42 (0-50); Lipase 195 U/L (23-300); Potassium 4.2 mmol/L (3.4-5.1); Sodium 138 mmol/L (137-145); Total Protein 8.4 g/dL (6.3-8.2)
[2021-09-09 20:17] LABS: COVID19 -Nasal RAPID Negative (Negative)
[2021-09-09 20:27] LABS: Troponin I < 0.012 ng/mL (0.01-0.034)
[2021-09-09 20:31] LABS: CKMB % Relative Index 0.8 % (1.5-5.0); Creatine Kinase MB 1.79 ng/mL (<2.37)
[2021-09-09 21:45] LABS: D Dimer 413 ng/mL (<230)
[2021-09-09] MEDS: KETOROLAC 30 MG/ML VIAL 15 MG IV (21:45)
[2021-09-09 21:46] LABS: Erythrocyte Sedimentation Rate 1 MM/HR (0-15)
[2021-09-09 21:50] LABS: C-Reactive Protein Quant 0.8 mg/dL (<1.0)
--- NOTE | 2021-09-09 21:51 | DI.CT.S_ITS ---
PROCEDURE: CT ANGIO CHEST PE PROTOCOL INDICATIONS: CP, SOB, hypoxia, pleuritic tachycardia, recent travel TECHNIQUE: After the administration of intravenous contrast, 2 mm thick sections acquired from the pulmonary apices to the posterior costophrenic angles. 3-dimensional maximum intensity projection (MIP) coronal and sagittal reformats were then acquired through the thorax. For radiation dose reduction, the following was used: automated exposure control, adjustment of mA and/or kV according to patient size. COMPARISON: None. FINDINGS: Image quality: Excellent. Pulmonary arteries: Pulmonary arteries are normal in size, and demonstrate no intraluminal filling defects to suggest central pulmonary embolism. Lungs and pleura: A few scattered ground-glass opacities are seen in posterior aspect of bilateral lung guillory which may represent mild pulmonary edema versus pneumonitis. No pleural effusions or pneumothorax. Central and peripheral airways are patent. Mediastinum: Heart size is normal, without pericardial effusion. No mediastinal or hilar adenopathy. Thoracic aorta is normal in caliber and enhancement. Esophagus is normal in caliber, without hiatal hernia. Bones and chest wall: No suspicious bony lesions. Ribs and thoracic spine appear intact throughout. Thyroid gland is within normal limits. No axillary or supraclavicular adenopathy. Abdomen: Visualized upper abdominal solid organs appear normal in the early arterial phase of enhancement. IMPRESSION: 1. No evidence of pulmonary emboli. No thoracic aortic aneurysm or dissection. 2. No mediastinal or hilar lymphadenopathy. 3. Ill-defined ground-glass opacities in dependent portion of bilateral lung guillory which may represent mild pulmonary edema versus pneumonitis. Early infiltrates secondary to atypical viral pneumonia such as COVID-19 infection cannot be entirely excluded. Clinical correlation is recommended. No pleural effusion or pneumothorax. Dictated by: Nick Mendez M.D. on 09/09/2021 at 22:24 Approved by: Nick Mendez M.D. on 09/09/2021 at 22:26
[2021-09-09 23:08] LABS: Troponin I < 0.012 ng/mL (0.01-0.034)
== END 2021-09-10 00:01 | disposition home or self-care (01) ==
PROVIDERS: Emergency Provider Emergency Medicine; PCP Family Medicine
DX: R07.9 Chest pain, unspecified (principal); Z20.822 Contact with and (suspected) exposure to COVID-19
CPT/HCPCS: 36415; 71045; 71275; 80053; 82550; 82553; 83690; 84484; 85025; 85379; 85651; 86140; 87635; 93005; 93010; 96361; 96374; 99284; 99285; C9803; J1885; Q9967

== ENCOUNTER → 2021-11-12 09:31 | Outpatient (CLI) | payer OTHER, SELFPAY ==
[2021-11-12 11:07] LABS: Vitamin D 25 Hydroxy (D3) 22.1 ng/mL (30.0-100.0)
[2021-11-12 11:22] LABS: Testosterone 257 ng/dL (132-813)
[2021-11-12 11:39] LABS: Vitamin B12 527 pg/mL (239-931)
== END ==
PROVIDERS: PCP Family Medicine; Referring Provider Family Medicine; Visit Provider Family Medicine
DX: R53.83 Other fatigue (principal)
CPT/HCPCS: 36415; 82306; 82607; 84403

== ENCOUNTER → 2021-12-03 08:17 | Outpatient (CLI) | payer OTHER, SELFPAY ==
[2021-12-03 10:45] LABS: Testosterone 197 ng/dL (132-813)
== END ==
PROVIDERS: PCP Family Medicine; Referring Provider Family Medicine; Visit Provider Family Medicine
DX: R53.83 Other fatigue (principal)
CPT/HCPCS: 36415; 84403

== ENCOUNTER → 2021-12-07 16:50 | Outpatient (CLI) | payer OTHER, SELFPAY ==
[2021-12-07 17:43] LABS: Luteinizing Hormone 2.01 mIU/mL; Prolactin 23.1 ng/mL (3.7-17.9)
== END ==
PROVIDERS: Family Provider Family Medicine; PCP Family Medicine; Referring Provider Family Medicine; Visit Provider Family Medicine
DX: E29.1 Testicular hypofunction (principal)
CPT/HCPCS: 36415; 83002; 84146

== ENCOUNTER → 2021-12-16 13:00 | Outpatient (CLI) | payer OTHER, SELFPAY ==
[2021-12-16 13:37] LABS: COVID19 -Nasal RAPID Negative (Negative)
== END ==
PROVIDERS: Family Provider Family Medicine; PCP Family Medicine; Referring Provider Family Medicine; Visit Provider Family Medicine
DX: Z20.822 Contact with and (suspected) exposure to COVID-19 (principal)
CPT/HCPCS: 87635; C9803

== ENCOUNTER → 2021-12-16 13:01 | Outpatient (CLI) | payer OTHER, SELFPAY ==
--- NOTE | 2021-12-21 11:15 | PM.PFT.1 ---
Pulmonary Function Test Referral & Results Date Patient Seen: 12/16/21 Requesting provider: Prem Bordy Results: The spirometry demonstrates an FVC of 4.67 L which is 84% of predicted. The FEV1 was measured at 3.96 L which is 90% of predicted. The FEV1/FVC ratio was 85 which is 107% of predicted. Following the administration of bronchodilator there was no notable change. Lung volumes show an SVC of 4.29 L which is 80% of predicted. The diffusing capacity was measured at 28.57 which is 81% of predicted. The maximum voluntary ventilation was normal Interpretation: This study demonstrates essentially normal pulmonary function
== END ==
PROVIDERS: Family Provider Family Medicine; PCP Family Medicine; Referring Provider Family Medicine; Visit Provider Family Medicine
DX: R06.09 Other forms of dyspnea (principal); Z20.822 Contact with and (suspected) exposure to COVID-19
CPT/HCPCS: 87635; 94060; 94726; 94729; C9803

== ENCOUNTER → 2021-12-17 09:18 | Outpatient (CLI) | payer OTHER, SELFPAY ==
[2021-12-19 15:52] LABS: Sex Hormone Binding Globulin 32.4 nmol/L (16.5-55.9)
[2021-12-21 14:42] LABS: Testosterone, Free 10.3 pg/mL (6.8-21.5)
== END ==
PROVIDERS: Family Provider Family Medicine; PCP Family Medicine; Referring Provider Family Medicine; Visit Provider Family Medicine
DX: E29.1 Testicular hypofunction (principal)
CPT/HCPCS: 36415; 84270; 84402

== ENCOUNTER → 2022-01-06 16:36 | Outpatient (CLI) | payer OTHER, SELFPAY ==
--- NOTE | 2022-01-06 16:38 | DI.MRI.S_ITS ---
PROCEDURE: MR BRAIN (PITUITARY) WWO CON INDICATIONS: Other specified abnormal findings of blood biochemist TECHNIQUE: Noncontrast sagittal and axial FLAIR, axial gradient echo, axial diffusion and ADC through the brain. Thin-slice sagittal and coronal T1 spin echo, coronal T2 fast spin echo through the pituitary. After the administration contrast, optional dynamic coronal T1 spin echo, thin-slice coronal and sagittal T1 spin echo images through the pituitary fossa; axial T1 spin echo with fat saturation through the brain. COMPARISON: None. FINDINGS: Image quality: Excellent. Pituitary Gland: The pituitary gland demonstrates normal signal and bulk. On the postcontrast imaging, the pituitary demonstrates generalized heterogeneous enhancement, yet without a focally suspicious hypoenhancing lesion. The pituitary stalk and infundibulum have an unremarkable appearance. A normal appearing pituitary bright spot is seen posteriorly on the precontrast sagittal T1-weighted images. The optic chiasm and the ventral forebrain have an unremarkable appearance. CSF Spaces: Ventricles are normal in size and shape. Basal cisterns are patent. No extra-axial fluid collections. Brain: No intracranial bleeds or mass effects. No abnormal intracranial enhancement. Matthews-white matter interface is intact. Diffusion weighted images demonstrate no acute ischemic insults. Brainstem is normal. Normal intravascular flow voids are present. Skull and face: Calvarial marrow is normal in signal. Orbits appear normal. Sinuses: Moderate mucosal thickening is seen within the left maxillary sinus. Mucous retention cysts are seen within the lateral aspect of the right maxillary sinus. Mild mucosal thickening is seen elsewhere within the paranasal sinuses. No abnormal fluid is seen within the mastoid air cells. IMPRESSION: Heterogeneous pituitary, yet without a suspicious mass seen to suggest pituitary microadenoma. If clinically appropriate, please consider a follow-up pituitary MRI study in 6-12 months. Paranasal sinus disease is incidentally noted, which is worst within the left maxillary sinus. Dictated by: Raghav Hdz M.D. on 01/06/2022 at 17:18 Approved by: Raghav Hdz M.D. on 01/06/2022 at 17:20
== END ==
PROVIDERS: Family Provider Family Medicine; PCP Family Medicine; Referring Provider Family Medicine; Visit Provider Family Medicine
DX: R79.89 Other specified abnormal findings of blood chemistry (principal); J32.8 Other chronic sinusitis
CPT/HCPCS: 70553

== ENCOUNTER → 2022-07-22 09:52 | Outpatient (CLI) | payer OTHER, SELFPAY ==
[2022-07-22 12:02] LABS: Add Manual Diff / Slide Review NO; Basophils Absolute Auto 100 /uL (0-100); Basophils Percent Auto 0.8 % (0-2); Eosinophils Absolute Auto 100 /uL (0-450); Hematocrit 49.9 % (41-53); Hemoglobin 16.9 g/dL (13.5-17.5); Lymphocytes Absolute Auto 2100 /uL (1100-4500); Mean Corpuscular HGB Conc 33.8 % (30-36); Mean Corpuscular Hemoglobin 29.2 PG (26-34); Mean Corpuscular Volume 86.3 fL (80-100); Monocytes Absolute Auto 600 /uL (0-900); Monocytes Percent Auto 9.1 % (3-14); Neutrophils Absolute Auto 4000 /uL (1500-7000); Neutrophils Percent Auto 57.1 % (50-75); Platelet Count 191 X10^3/uL (150-400); Red Blood Cell Count 5.79 X10^6/uL (4.5-5.9); Red Cell Distribution Width 13.6 % (11.6-14.8); White Blood Cell Count 6.9 X10^3/uL (4.5-11.0)
[2022-07-22 14:25] LABS: Alanine Aminotransferase 44 IU/L (<50); Albumin 4.5 g/dL (3.5-5.0); Albumin Globulin Ratio 1.4 (1.0-2.8); Alkaline Phosphatase 72 U/L (38-126); Aspartate Aminotransferase 39 IU/L (17-59); BUN Creatinine Ratio 12.6 (6-22); Bilirubin Total 0.6 mg/dL (0.2-1.3); Blood Urea Nitrogen 13 mg/dL (9-20); Calcium 9.3 mg/dL (8.4-10.2); Carbon Dioxide 23 mmol/L (22-32); Chloride 106 mmol/L (98-107); Cholesterol 238 mg/dL (140-199); Estimated Glomerular Filt Rate > 60 mL/min (>60); Globulin 3.2 g/dL (1.7-4.1); Glucose 84 mg/dL (70-100); HDL Cholesterol 21 mg/dL (40-60); HEMOLYSIS < 15 (0-50); LDL Cholesterol Calculated 146 mg/dL (<100); Potassium 3.8 mmol/L (3.4-5.1); Sodium 140 mmol/L (137-145); Total Protein 7.7 g/dL (6.3-8.2); Triglycerides 353 mg/dL (35-150); VLDL Cholesterol Calculated 71 mg/dL (2-30)
[2022-07-22 14:53] LABS: Thyroid Stimulating Hormone 2.24 uIU/mL (0.47-4.68)
[2022-07-28 18:47] LABS: Percent Free Testosterone 2.65 % (1.50-4.20); Testosterone Free 25.83 ng/dL (5.00-21.00); Testosterone Total 974.9 ng/dL (264.0-916.0)
== END ==
PROVIDERS: Family Provider Family Medicine; PCP Family Medicine; Referring Provider Family Medicine; Visit Provider Family Medicine
DX: I10 Essential (primary) hypertension (principal); Z00.00 Encounter for general adult medical examination without abnormal findings; E78.5 Hyperlipidemia, unspecified
CPT/HCPCS: 36415; 80053; 80061; 84402; 84403; 84443; 85025

== ENCOUNTER 2022-12-20 08:53 | Day surgery (SDC) | payer OTHER, SELFPAY ==
[2022-12-19 08:48] VITALS: BMI 35.9
[2022-12-20 09:21] VITALS: BMI 35.5
[2022-12-20] MEDS: ACETAMINOPHEN 325 MG TABLET 975 MG PO (09:34)
[2022-12-20] MEDS: LACTATED RINGERS 1,000 ML 42 ML IV (09:35)
[2022-12-20 09:41] VITALS: BP 143/63; PULSE 76; RESP 18; TEMP 36.4; O2SAT 98
--- NOTE | 2022-12-20 09:48 | PM.HP.1 ---
History of Present Illness History of Present Illness Date Patient Seen: 12/20/22 Time Patient Seen: 09:48 Chief complaint: Open Umbilical Hernia Repair Narrative: 47-year-old a symptomatic reducible umbilical hernia for open repair. Please refer to the H and P from October 2022 for further detail. No interval changes health. [facility] Medical History History of COVID-19 (02/20/22) Hypertension Laceration of finger Obstructive sleep apnea (adult) (pediatric) Surgical History History of surgery (1997) Family History Mother Hypertension Father Hypertension Brother Hypertension Social History marital status: household members: spouse lives independently: Yes occupational status: employed Smoking Status: Never smoker alcohol intake: current substance use type: does not use Meds Home Medications and Allergies Home Medications Medication Instructions Recorded Confirmed Type amlodipine 10 mg tablet 10 mg PO DAILY 02/08/22 12/20/22 History clomiphene citrate 50 mg tablet 50 mg PO DAILY 11/30/22 12/20/22 History (Clomid) Allergies Allergy/AdvReac Type Severity Reaction Status Date / Time lisinopril AdvReac Acute Verified 12/19/22 08:51 kidney failure Exam Vital Signs (past 8 hours): - 12/20/22 09:41 Temperature 97.6 F Pulse Rate 76 Respiratory Rate 18 Blood Pressure 143/63 H Pulse Oximetry 98 Oxygen Delivery Method Room Air Oxygen Delivery Method Room Air Narrative Exam Narrative: General adult man alert oriented no acute distress Abdomen soft nontender nondistended. Umbilical hernia is marked with my initials Assessment & Plan Assessment and plan (1) Umbilical hernia: Qualifiers: Obstruction and gangrene presence: without obstruction or gangrene Qualified Code(s): K42.9 - Umbilical hernia without obstruction or gangrene Status: Acute Assessment & Plan narrative: 47M with a symptomatic umbilical hernia here for open umbilical hernia repair with mesh. Overview of the operation discussed. Operative risks including hemorrhage, infection, reoccurence, damage to surrounding structures. Questions have been answered and he is in agreement with this plan.
[2022-12-20] MEDS: CEFAZOLIN 2 GM/100 ML PREMIX 100 ML IV (10:18)
--- NOTE | 2022-12-20 10:51 | SUR.OPER ---
Supine on padded OR bed, head on pillow, arms secured on padded arm boards at <90 degrees abduction, legs uncrossed, safety belt at thigh, tape over blanket over lower legs. CONFIRMED BY DR. Kalia GARCIA
--- NOTE | 2022-12-20 11:03 | SUR.OPER ---
BUPIVICAINE 0.25% PLAIN=20ML INJECTED TO OPERATIVE SITE BY DR. Kalia GARCIA INTRA-OP. Lionel OrtizNRajesh
--- NOTE | 2022-12-20 11:08 | PM.OP.1 ---
Operative Date/Time/Diagnoses Date of procedure: 12/20/22 Time of procedure: 11:08 Pre-op diagnosis: Umbilical hernia Post-op diagnosis: same Procedure & Clinicians Procedure: Open umbilical hernia repair mesh Same procedure as scheduled: Yes Indications: Symptomatic reducible umbilical hernia Surgeon: Mihir Russell Custodial Worker: Farhat Urban Anesthesia Type: General Operative Notes Findings: 3 cm fascial defect containing omentum Specimen(s): none sent Estimated Blood Loss (mL): 20 Procedure in detail: Patient was brought to the operating room placed supine on the table. Bilateral lower extremity compression devices were applied. General anesthesia was induced and they were intubated with an endotracheal tube. They received 2 g of Ancef prior to skin incision. They were prepped and draped in sterile fashion. A time-out was performed. A curvilinear incision was made inferior to the umbilicus. The subcutaneous tissues were divided. The umbilical hernia was identified and the hernia sac was dissected off the umbilical skin and circumferentially off of the fascia defect. The hernia sac was sharply opened and contained viable omentum. The omentum was reduced back into the abdomen. Using blunt dissection I carefully carefully freed the hernia sac from beneath the fascia defect in order to accomodate the mesh. The fascia defect was 3 cm in maximal diameter. A Bard Ventralex ST hernia patch 6 cm was inserted beneath the fascia defect and above the peritoneum in a sublay position. The mesh was anchored in multiple locations using Ethibond suture to the fascia and the fascial defect was closed over the mesh. The umbilical skin was tacked to the subcutaneous tissues and then the remainder of the subcutaneous tissues were reapproximated using 3 0 Vicry,l skin closed with 4 0 Monocryl followed by the application of Dermabond and Steri-Strips. Sponge instrument count at the end of the operation was correct. Patient tolerated procedure well was extubated and transferred to postoperative care unit in stable condition. Complications: none Post-operative Condition: stable Disposition: same day surgery
[2022-12-20 11:12] VITALS: BP 115/70; PULSE 78; RESP 12; TEMP 36.3; O2SAT 97
[2022-12-20] MEDS: BUPIVACAINE 0.25% (PF) VIAL 30 ML INJ (11:15)
[2022-12-20 11:17] VITALS: BP 121/84; PULSE 73; RESP 12; O2SAT 94
[2022-12-20] MEDS: OXYCODONE IR 5 MG TABLET PO (11:20)
[2022-12-20 11:22] VITALS: BP 114/72; PULSE 68; RESP 12; O2SAT 95
[2022-12-20 11:28] VITALS: BP 109/65; PULSE 58; RESP 20; O2SAT 93
== END 2022-12-20 11:52 | disposition home or self-care (01) ==
PROVIDERS: Family Provider Family Medicine; PCP Family Medicine; Referring Provider Surgery; Visit Provider Surgery
PROC: (CPT 49593; principal; 2022-12-20 10:15)
DX: K42.9 Umbilical hernia without obstruction or gangrene (principal); I10 Essential (primary) hypertension; G47.33 Obstructive sleep apnea (adult) (pediatric)
CPT/HCPCS: 49593; 82962; J0690; J1100; J1885; J2250; J2405; J2704; J3010

== ENCOUNTER → 2023-01-13 08:00 | Outpatient (CLI) | payer OTHER, SELFPAY ==
[2023-01-13 09:13] LABS: Alanine Aminotransferase 36 IU/L (<50); Albumin 4.1 g/dL (3.5-5.0); Albumin Globulin Ratio 1.5 (1.0-2.8); Alkaline Phosphatase 70 U/L (38-126); Aspartate Aminotransferase 24 IU/L (17-59); BUN Creatinine Ratio 15.9 (6-22); Bilirubin Total 0.3 mg/dL (0.2-1.3); Blood Urea Nitrogen 14 mg/dL (9-20); Carbon Dioxide 28 mmol/L (22-32); Chloride 105 mmol/L (98-107); Estimated Glomerular Filt Rate > 60 mL/min (>60); Globulin 2.7 g/dL (1.7-4.1); Glucose 99 mg/dL (70-100); HEMOLYSIS < 15 (0-50); Potassium 4.3 mmol/L (3.4-5.1); Sodium 140 mmol/L (137-145); Total Protein 6.8 g/dL (6.3-8.2)
[2023-01-19 07:19] LABS: Percent Free Testosterone 2.36 % (1.50-4.20); Testosterone Free 18.13 ng/dL (5.00-21.00); Testosterone Total 768.1 ng/dL (264.0-916.0)
== END ==
PROVIDERS: Family Provider Family Medicine; PCP Family Medicine; Referring Provider Family Medicine; Visit Provider Family Medicine
DX: E29.1 Testicular hypofunction (principal); I10 Essential (primary) hypertension
CPT/HCPCS: 36415; 80053; 84402; 84403

== ENCOUNTER 2024-07-22 13:04 | Day surgery (SDC) | payer OTHER, SELFPAY ==
--- NOTE | 2024-07-22 | PATH_ITS ---
[facility] Accession Number: [id number] No. of containers..01 Tissue . 01 Material submitted: . colon - SIGMOID POLYP . 01 Diagnosis: SIGMOID COLON POLYP: Hyperplastic polyp. [facility] 07/24/2024 1041 Local . 01 Electronically signed: . Jonathan Anne MD, PhD, Pathologist NPI- [id number] . 01 Gross description: . Received in formalin with two patient identifiers and sigmoid polyp, are two dunlap soft tissue fragments both measuring 0.3 cm in greatest dimension. Submitted in cassette A1. ([id number]) /[facility]ANE[facility] 07/23/2024 1006 Local . 01 Pathologist provided ICD-10: K63.5 . 01 CPT . 513172 Specimen Comment: A courtesy copy of this report has been sent to [phone] Performed at: [address] [facility] [id number] MD Shawn Harris MD Phone: [phone]
[2024-07-22 13:25] VITALS: BP 142/93; PULSE 66; RESP 18; TEMP 36.6; O2SAT 96
--- NOTE | 2024-07-22 13:52 | P.HP_ITS ---
History of Present Illness History of Present Illness Date Patient Seen: 07/22/24 Time Patient Seen: 13:52 Chief complaint: Screening Colonoscopy Narrative: 49-year-old man here for 1st time screening colonoscopy. No family history of colon cancer. No abdominal concerns. [facility] Medical History History of COVID-19 (02/20/22) Laceration of finger Obstructive sleep apnea (adult) (pediatric) Hypertension Surgical History History of surgery (1997) Family History Mother Hypertension Father Hypertension Brother Hypertension Social History marital status: household members: spouse lives independently: Yes occupational status: employed Smoking Status: Never smoker alcohol intake: current substance use type: does not use Meds Home Medications and Allergies Home Medications Medication Instructions Recorded Confirmed Type amlodipine 10 mg tablet 10 mg PO DAILY 02/08/22 07/22/24 History clomiphene citrate 50 mg tablet 50 mg PO DAILY 11/30/22 07/22/24 History (Clomid) acetaminophen 325 mg capsule 650 mg (2 x 325 mg) PO QID PRN 12/20/22 12/29/22 Rx (Tylenol) pain #60 caps docusate sodium 100 mg capsule 100 mg PO BID #30 caps 12/20/22 12/29/22 Rx (Colace) ibuprofen 200 mg tablet 400 mg (2 x 200 mg) PO Q6H #60 tabs 12/20/22 12/29/22 Rx peg 3350-electrolytes 236 240 ml PO Q10M #4,000 mL 06/17/24 Rx gram-22.74 gram-6.74 gram-5.86 gram solution (Golytely) minoxidil 2.5 mg tablet 2.5 mg PO DAILY 07/22/24 07/22/24 History Allergies Allergy/AdvReac Type Severity Reaction Status Date / Time lisinopril AdvReac Acute Verified 07/22/24 13:24 kidney failure Exam Vital Signs (past 8 hours): - 07/22/24 13:25 Temperature 97.9 F Pulse Rate 66 Respiratory Rate 18 Blood Pressure 142/93 H Pulse Oximetry 96 Oxygen Delivery Method Room Air Oxygen Delivery Method Room Air Narrative Exam Narrative: General adult man alert oriented no acute distress Chest nonlabored respiration Extremities warm well perfused Assessment & Plan Assessment & Plan narrative: The patient requires colorectal screening and colonoscopy is recommended. Technical details were discussed. Risks, benefits, alternatives explained. Risks including but not limited to myocardial infarction, aspiration, bleeding, pain, missed lesion, incomplete examination, need for further radiographic studies, intestinal injury, and need for major abdominal surgery were discussed. All questions were answered to their satisfaction, and they are in agreement with this plan. Time-Based Coding :: [TOTAL MINUTES] spent with patient and on the chart (including review of chart, obtaining history, exam, reviewing outside data, placing orders, documenting exam and treatment plan, and counseling patient) on [DATE].
[2024-07-22 14:22] VITALS: BP 128/89; PULSE 69; RESP 15; TEMP 37.2; O2SAT 99
--- NOTE | 2024-07-22 14:22 | P.OP.COLON_ITS ---
Operative Date/Time/Diagnoses Date of procedure: 07/22/24 Time of procedure: 14:23 Pre-op diagnosis: Colorectal screening Post-op diagnosis: other (Colonic polyp x1) Procedure & Clinicians Study performed: Colonoscopy and polypectomy Same procedure as scheduled: Yes Indications: Screening Surgeon: Mihir Russell Procedure Notes Procedure in detail: The history and physical was performed/updated and the patient is ASA class is 2. The procedure was discussed in detail with the patient. Potential risks complications including infection, bleeding, missed diagnosis, perforation, need for surgery, and were explained. Their questions were answered and informed consent was obtained. Patient was brought to the procedure room and placed standard monitoring equipment. The patient's vital signs were monitored continuously throughout the entire procedure. Prior to starting time-out was performed. The patient was placed in the left lateral recumbent position. Procedural sedation was administered by anesthesia. Examination began with a thorough inspection of the perianal area there was no evidence of fissures, fistulae, external hemorrhoids or cutaneous malignancy. The colonoscopy scope was then placed into the anal canal and was advanced to the cecum, which was identified by the ileocecal valve, the appendiceal orifice and the confluence of the taenia. The scope was then slowly withdrawn examining colon thoroughly in all directions, irrigating it of any residual stool. The scope was retroflexed within the rectum The patient tolerated the procedure well. They will be discharged once criteria are met. The prep was of fair quality. The withdrawl time was 9 minutes. FINDINGS * Sigmoid colon 3 mm polyp removed with biopsy forceps * Mild diverticulosis of distal colon Specimen(s): other (Sigmoid colon polyp) Impression: Colonic polyp x1 Post-procedure Recommendations: High fiber diet Plan for aftercare: Follow up dependent on pathology findings Disposition: same day surgery
[2024-07-22 14:24] VITALS: BP 141/97; PULSE 70; RESP 15; TEMP 37.2; O2SAT 99
[2024-07-22 14:28] VITALS: BP 149/89; PULSE 65; RESP 15; TEMP 37.2; O2SAT 99
== END 2024-07-22 14:36 | disposition home or self-care (01) ==
PROVIDERS: Family Provider Family Medicine; PCP Family Medicine; Referring Provider Surgery; Visit Provider Surgery
PROC: 0DJD8ZZ Inspection of Lower Intestinal Tract, Via Natural or Artificial Opening Endoscopic (ICD-10-PCS; CPT 45378; principal; 2024-07-22 14:15)
DX: Z12.11 Encounter for screening for malignant neoplasm of colon (principal); K57.30 Diverticulosis of large intestine without perforation or abscess without bleeding; K63.5 Polyp of colon
CPT/HCPCS: 45380; J2704

== ENCOUNTER 2024-09-17 15:41 | Emergency (ER) | payer OTHER, SELFPAY ==
[2024-09-17 15:49] VITALS: BP 159/86; PULSE 76; RESP 18; TEMP 36.9; O2SAT 99; BMI 36.2
--- NOTE | 2024-09-17 16:03 | ED_ITS ---
HPI - Back Pain/Injury <Yudith Parson PA-C - Last Filed: 09/17/24 18:59> General Chief Complaint: Back Pain/Injury Stated Complaint: lower back px Time Seen by Provider: 09/17/24 16:02 Source: patient History of Present Illness HPI Narrative: Mr. Felix is a pleasant 49-year-old male with a past medical history of hypertension, lumbar degenerative disc disease who presents to the emergency department for low back pain radiating to the right leg x 3 days. 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 States he does have chronic lumbar problems and every few months has flare of low back pain. He had physical therapy for a year in the past because of his low back pain. Typically he manages his pain at home however this is more severe than usual. Describes constant pain in the right back region that occasionally radiates into the right leg/right thigh region. Took Aleve earlier today which did not resolve the pain. He denies any lower extremity weakness, numbness, changes in bowel or bladder function, hematuria, dysuria, flank pain, trauma to the back, history of IV drug use. Related Data Home Medications Medication Instructions Recorded Confirmed amlodipine 10 mg tablet 10 mg PO DAILY 02/08/22 07/22/24 clomiphene citrate 50 mg tablet 50 mg PO DAILY 11/30/22 07/22/24 (Clomid) minoxidil 2.5 mg tablet 2.5 mg PO DAILY 07/22/24 07/22/24 Previous Rx's Medication Instructions Recorded acetaminophen 325 mg capsule 650 mg (2 x 325 mg) PO QID PRN 12/20/22 (Tylenol) pain #60 caps docusate sodium 100 mg capsule 100 mg PO BID #30 caps 12/20/22 (Colace) ibuprofen 200 mg tablet 400 mg (2 x 200 mg) PO Q6H #60 tabs 12/20/22 acetaminophen 500 mg capsule 1,000 mg (2 x 500 mg) PO Q6H PRN 09/17/24 fever or pain #30 caps methocarbamol 500 mg tablet 500 mg PO TID PRN muscle spasm #14 09/17/24 tabs naproxen 500 mg tablet 500 mg PO BID PRN pain #20 tabs 09/17/24 prednisone 20 mg tablet 40 mg (2 x 20 mg) PO DAILY 5 days 09/17/24 #10 tabs Allergies Allergy/AdvReac Type Severity Reaction Status Date / Time lisinopril AdvReac Acute Verified 09/17/24 15:52 kidney failure Review of Systems <Yudith Parson PA-C - Last Filed: 09/17/24 18:59> Review of Systems ROS Unobtainable: All systems reviewed & are unremarkable except as noted in HPI and below Patient History <Yudith Parson PA-C - Last Filed: 09/17/24 18:59> Medical History History of COVID-19 (02/20/22) Laceration of finger Obstructive sleep apnea (adult) (pediatric) Hypertension Surgical History History of surgery (1997) Family History Mother Hypertension Father Hypertension Brother Hypertension Social History marital status: household members: spouse lives independently: Yes occupational status: employed Smoking Status: Never smoker alcohol intake: current substance use type: does not use Smoking Status: Never smoker alcohol intake frequency: a few times a month Exam <Yudith Parson PA-C - Last Filed: 09/17/24 18:59> Narrative Exam Narrative: GENERAL: 49 year old patient appears stated age. Well-developed patient, in no acute distress. HEAD: Atraumatic. Normocephalic. NECK: Trachea midline. Cervical ROM intact. CARDIOVASCULAR: Regular rate and rhythm. RESPIRATORY: ?Nonlabored respirations. ?Speaking in clear, full sentences. ?Clear to auscultation. GASTROINTESTINAL: Abdomen soft, non-tender, nondistended. EXTREMITIES: No edema or joint tenderness. BACK: Nontender without deformity or crepitance. No flank tenderness. Subjective pain in right paralumbar spinal region. Positive right side straight leg raise at 45?, negative left straight leg raise. NEURO: AOx3. ?Clear speech. ?Moves all 4 extremities appropriately. 5/5 bilateral strength of knee extension/flexion, plantar/dorsiflexion, hip flexion/extension. Sensation intact to light touch on the bilateral plantar and dorsal feet, bl groin. SKIN: No rash or erythema of visible areas Initial Vital Signs Initial Vital Signs: Vital Signs Temperature 98.4 F 09/17/24 15:49 Pulse Rate 76 09/17/24 15:49 Respiratory Rate 18 09/17/24 15:49 Blood Pressure 159/86 H 09/17/24 15:49 Pulse Oximetry 99 09/17/24 15:49 Oxygen Delivery Method Room Air 09/17/24 15:49 <Gay Glover DO - Last Filed: 09/18/24 17:39> Initial Vital Signs Initial Vital Signs: Vital Signs Temperature 98.4 F 09/17/24 15:49 Pulse Rate 76 09/17/24 15:49 Respiratory Rate 18 09/17/24 15:49 Blood Pressure 159/86 H 09/17/24 15:49 Pulse Oximetry 99 09/17/24 15:49 Oxygen Delivery Method Room Air 09/17/24 15:49 Course <Yudith Parson PA-C - Last Filed: 09/17/24 18:59> Orders Ordered: Discontinued Medications Hydrocodone Bitart/Acetaminophen (Hydrocodone/Acet 5/325 Tablet) 1 tab PO NOW ONE Stop: 09/17/24 16:34 Last Admin: 09/17/24 16:39 Dose: 1 tab Documented By: IHSAN Ketorolac Tromethamine (Ketorolac 30 Mg/Ml Vial) 30 mg IM NOW ONE Stop: 09/17/24 16:34 Last Admin: 09/17/24 16:39 Dose: 30 mg Documented By: IHSAN Prednisone (Prednisone 20 Mg Tablet) 40 mg PO NOW ONE Stop: 09/17/24 16:34 Last Admin: 09/17/24 16:39 Dose: 40 mg Documented By: IHSAN Vital Signs Vital signs: Vital Signs - 8 hr 09/17/24 15:49 09/17/24 18:06 Temperature 98.4 F Pulse Rate 76 66 Respiratory Rate 18 16 Blood Pressure 159/86 H 141/78 H Pulse Oximetry 99 96 Oxygen Delivery Method Room Air Room Air <Gay Glover DO - Last Filed: 09/18/24 17:39> Orders Ordered: Discontinued Medications Hydrocodone Bitart/Acetaminophen (Hydrocodone/Acet 5/325 Tablet) 1 tab PO NOW ONE Stop: 09/17/24 16:34 Last Admin: 09/17/24 16:39 Dose: 1 tab Documented By: SB Ketorolac Tromethamine (Ketorolac 30 Mg/Ml Vial) 30 mg IM NOW ONE Stop: 09/17/24 16:34 Last Admin: 09/17/24 16:39 Dose: 30 mg Documented By: SB Prednisone (Prednisone 20 Mg Tablet) 40 mg PO NOW ONE Stop: 09/17/24 16:34 Last Admin: 09/17/24 16:39 Dose: 40 mg Documented By: SB Vital Signs Vital signs: Vital Signs - 8 hr 09/17/24 15:49 09/17/24 18:06 Temperature 98.4 F Pulse Rate 76 66 Respiratory Rate 18 16 Blood Pressure 159/86 H 141/78 H Pulse Oximetry 99 96 Oxygen Delivery Method Room Air Room Air MDM - Back Pain/Injury <Yudith Parson PA-C - Last Filed: 09/17/24 18:59> Medical Records Attestation: I reviewed the patient's medical records. MDM Narrative Medical decision making narrative: 49-year-old male with a past medical history of hypertension, lumbar degenerative disc disease who presents to the emergency department for low back pain radiating to the right leg x 3 days. His is an independent historian. Differential diagnosis includes but is not limited to lumbar degenerative disc disease, lumbar radiculopathy, muscle strain, muscle spasm, sacroiliitis, etc. On exam the patient is in no acute distress, nontoxic appearing, vital signs appropriate, lower extremities neurovascularly intact. No red flags such as trauma to the back, fevers, IV drug use, lower extremity weakness or paresthesias. His symptoms are similar to his prior back pain ?flares?. At this time we will treat lumbar radiculopathy with ketorolac, hydrocodone-acetam inophen, prednisone. We will send patient home with short course of prednisone in addition to muscle relaxer and naproxen/acetaminophen. Advised patient follow up with PCP for referral to ortho spine for further management of chronic low back pain in addition he may benefit from physical therapy. Recommended warm compresses, gentle stretching, avoid heavy lifting or prolonged sitting or standing for the next few days. Discussed strict ED return precautions and follow up with PCP. Patient and his verbalized understanding of all information and are agreeable to the plan. Discussed risks of opioids and muscle relaxers. Patient is ambulatory and stable for discharge home. Discharge Plan Departure Patient Disposition: Home Clinical Impression: Acute right lumbar radiculopathy Instructions: DI for Low Back Pain Activity Restrictions/Additional Instructions: Thank you for coming to the emergency department today. You were evaluated for right-sided low back pain radiating into the leg. You received medications in the emergency department and I have prescribed naproxen and acetaminophen in addition to a short course of prednisone and methocarbamol which is a muscle relaxer. Please use these medications in addition to heat therapy and gentle stretching. Do not drink alcohol, work, operate heavy machinery while taking muscle relaxers as it may make you drowsy. Please follow up with the primary care doctor for referral to an orthopedic spine surgeon for further evaluation and management. [facility] has an orthopedic spine surgeon, Dr. Arias, who you could follow up with. Return to the emergency department immediately if you develop dysfunction of your bowel/bladder, blood in your urine, weakness, numbness or tingling in the groin, any other concerns. Please follow up with your primary care doctor within the next 2-3 days for ER follow-up. (If you do not have a PCP you can call [phone]. ?to schedule an appointment with an [facility] Primary Care Provider) IF YOU DEVELOP ANY NEW OR WORSENING SYMPTOMS, RETURN TO THE ER! Please read the attached instructions, they highlight more specific treatments and interventions for you at home. Thank you for letting me participate in your care, Yudith Parson PA-C Prescriptions: New prednisone 20 mg tablet 40 mg PO DAILY 5 Days Qty: 10 0RF naproxen 500 mg tablet 500 mg PO BID PRN (Reason: pain) Qty: 20 0RF acetaminophen 500 mg capsule 1,000 mg PO Q6H PRN (Reason: fever or pain) Qty: 30 0RF methocarbamol 500 mg tablet 500 mg PO TID PRN (Reason: muscle spasm) Qty: 14 0RF No Action clomiphene citrate [Clomid] 50 mg tablet 50 mg PO DAILY minoxidil 2.5 mg tablet 2.5 mg PO DAILY docusate sodium [Colace] 100 mg capsule 100 mg PO BID Qty: 30 0RF ibuprofen 200 mg tablet 400 mg PO Q6H Qty: 60 0RF acetaminophen [Tylenol] 325 mg capsule 650 mg PO QID PRN (Reason: pain) Qty: 60 0RF amlodipine 10 mg tablet 10 mg PO DAILY Referrals: Prem Brody MD [Primary Care Provider] - Stand Alone Forms: Patient Portal/API/Survey, Work Release Note ED Sign-out <Gay Glover DO - Last Filed: 09/18/24 17:39> Cosign ED Attending Cosignature Attestation: I was available for consultation.
[2024-09-17] MEDS: HYDROCODONE/ACET 5/325 TABLET 1 TAB PO (16:39)
[2024-09-17] MEDS: predniSONE 20 MG TABLET 40 MG PO (16:39)
[2024-09-17] MEDS: KETOROLAC 30 MG/ML VIAL IM (16:39)
[2024-09-17 18:06] VITALS: BP 141/78; PULSE 66; RESP 16; O2SAT 96
== END 2024-09-17 18:08 | disposition home or self-care (01) ==
PROVIDERS: Emergency Provider Physician Assistant; Family Provider Family Medicine; PCP Family Medicine
DX: M51.16 Intervertebral disc disorders with radiculopathy, lumbar region (principal)
CPT/HCPCS: 96372; 99283; 99284; J1885

== ENCOUNTER → 2024-11-08 09:25 | Outpatient (CLI) | payer OTHER, SELFPAY ==
[2024-11-08 10:56] LABS: Add Manual Diff / Slide Review NO; Basophils Absolute Auto 100 /uL (0-100); Basophils Percent Auto 1.6 % (0-2); Eosinophils Absolute Auto 300 /uL (0-450); Eosinophils Percent Auto 5.7 % (2-4); Hematocrit 47.2 % (41-53); Hemoglobin 16.1 g/dL (13.5-17.5); Lymphocytes Absolute Auto 1800 /uL (1100-4500); Lymphocytes Percent Auto 35.1 % (25-40); Mean Corpuscular HGB Conc 34.1 % (30-36); Mean Corpuscular Hemoglobin 29.5 PG (26-34); Mean Corpuscular Volume 86.5 fL (80-100); Monocytes Absolute Auto 500 /uL (0-900); Monocytes Percent Auto 10.5 % (3-14); Neutrophils Absolute Auto 2400 /uL (1500-7000); Neutrophils Percent Auto 47.1 % (50-75); Platelet Count 185 X10^3/uL (150-400); Red Blood Cell Count 5.46 X10^6/uL (4.5-5.9); Red Cell Distribution Width 13.2 % (11.6-14.8); White Blood Cell Count 5.1 X10^3/uL (4.5-11.0)
[2024-11-08 11:38] LABS: Alanine Aminotransferase 35 IU/L (<50); Albumin 4.5 g/dL (3.5-5.0); Albumin Globulin Ratio 1.8 (1.0-2.8); Alkaline Phosphatase 54 U/L (38-126); Aspartate Aminotransferase 35 IU/L (17-59); BUN Creatinine Ratio 11.7 (6-22); Bilirubin Total 0.6 mg/dL (0.2-1.3); Blood Urea Nitrogen 12 mg/dL (9-20); Calcium 9.3 mg/dL (8.4-10.2); Carbon Dioxide 27 mmol/L (22-32); Chloride 105 mmol/L (98-107); Cholesterol 222 mg/dL (140-199); Estimated Glomerular Filt Rate > 60 mL/min (>60); Globulin 2.5 g/dL (1.7-4.1); Glucose 92 mg/dL (70-100); HDL Cholesterol 24 mg/dL (40-60); HEMOLYSIS < 15 (0-50); LDL Cholesterol Calculated 164 mg/dL (<100); Potassium 4.6 mmol/L (3.4-5.1); Sodium 141 mmol/L (137-145); Triglycerides 169 mg/dL (35-150)
[2024-11-08 12:16] LABS: TSH w/ Reflex to FT4 1.82 uIU/mL (0.47-4.68)
== END ==
PROVIDERS: Family Provider Family Medicine; PCP Family Medicine; Referring Provider Family Medicine; Visit Provider Family Medicine
DX: E78.2 Mixed hyperlipidemia (principal); E29.1 Testicular hypofunction; I10 Essential (primary) hypertension; R79.89 Other specified abnormal findings of blood chemistry
CPT/HCPCS: 36415; 80053; 80061; 84402; 84403; 84443; 85025